=== PATIENT | male | born 1965 | race Caucasian/White ===

== ENCOUNTER → 2016-05-20 | Outpatient (CLI) | payer BC ==
--- NOTE | 2016-05-21 07:48 | XR ---
EXAMINATION TYPE: XR chest 2V DATE OF EXAM: 05/20/2016 7:17 PM COMPARISON: NONE HISTORY: Shortness of breath TECHNIQUE: Frontal and lateral views of the chest are obtained. FINDINGS: There is no focal air space opacity, pleural effusion, or pneumothorax seen. The cardiac silhouette size is within normal limits. The osseous structures are intact. IMPRESSION: No acute cardiopulmonary process.
== END | disposition home or self-care (01) ==
LOC: RADXRMAIN 18:55
PROVIDERS: ATTEND Family Medicine
DX: J20.9 Acute bronchitis, unspecified (principal)
CPT/HCPCS: 71020

== ENCOUNTER 2016-05-21 17:09 | Inpatient (IN) | payer BC ==
[2016-05-21] MEDS ORDERED: ALBUTEROL NEBULIZED 2.5 MG/3 ML INHALATION STA (17:48)
[2016-05-21] MEDS ORDERED: methylPREDNISolone SOD SUCCI 125 MG/2 ML VIAL IV STA (17:48)
[2016-05-21] MEDS ORDERED: SODIUM CHLORIDE 0.9% 1,000 ML IV STA (17:48)
[2016-05-21] MEDS ORDERED: KETOROLAC 30 MG/ML 1 ML VIAL IVP STA (18:14)
--- NOTE | 2016-05-21 18:14 | ED ---
General Adult HPI <Jesus Manuel Cullen - Last Filed: 05/21/16 19:49> - General Source: patient, RN notes reviewed Mode of arrival: ambulatory Limitations: no limitations <Anuradha Cheng - Last Filed: 05/21/16 19:58> - General Chief complaint: Upper Respiratory Infection Stated complaint: POSS PNEUMONIA, SENT BY DR MASSEY Time Seen by Provider: 05/21/16 17:44 - History of Present Illness Initial comments: 50-year-old male presents to the emergency department with a chief complaint of cough and shortness of breath. Patient has been sick for the last few weeks. He has been on antibiotics as well as been on steroids with no improvement. Patient states that he continues to be short of breath. Patient states that he also has developed fever starting today. He went to his doctor there x-ray and today continued to have coughing fits shortness of breath without that he should be re-seen. They stated there was no other symptoms. They deny any history of smoking. They state that he does work outside. He states they've been doing a breathing treatment as well as no improvement. Basically were concerned due to the continued symptoms without that they should be evaluated. Patient states he also has a chest pain on the center of his chest worse when he coughs worse to touch as well. Patient denies any recent back pain, abdominal pain, nausea vomiting, numbness or tingling, dysuria or hematuria, constipation or diarrhea, headaches or visual changes, or any other current symptoms. (Anuradha Cheng) - Related Data Home Medications Medication Instructions Recorded Confirmed Albuterol Nebulized [Ventolin 2.5 mg INHALATION RT-BID 05/21/16 05/21/16 Nebulized] Desvenlafaxine Succinate [Pristiq] 100 mg PO QAM 05/21/16 05/21/16 Fenofibrate [Lofibra] 160 mg PO DAILY 05/21/16 05/21/16 Fexofenadine HCl [Lara Allergy] 180 mg PO DAILY 05/21/16 05/21/16 Multivitamins, Thera [Multivitamin] 1 tab PO DAILY 05/21/16 05/21/16 Zolpidem [Ambien] 10 mg PO HS PRN 05/21/16 05/21/16 buPROPion XL [Wellbutrin Xl] 150 mg PO DAILY 05/21/16 05/21/16 Allergies Allergy/AdvReac Type Severity Reaction Status Date / Time No Known Allergies Allergy Verified 05/21/16 17:54 Review of Systems ROS Other: All systems not noted in ROS Statement are negative. <Jesus Manuel Cullen - Last Filed: 05/21/16 19:49> ROS Other: All systems not noted in ROS Statement are negative. <JovicarylAnuradha - Last Filed: 05/21/16 19:58> ROS Statement: Those systems with pertinent positive or pertinent negative responses have been documented in the HPI. Past Medical History Past Medical History: No Reported History History of Any Multi-Drug Resistant Organisms: None Reported Past Surgical History: Hernia Repair, Orthopedic Surgery Additional Past Surgical History / Comment(s): shoulder hip arm Past Psychological History: No Psychological Hx Reported Smoking Status: Current every day smoker Past Alcohol Use History: None Reported, Occasional Past Drug Use History: None Reported <SkylarAnuradha - Last Filed: 05/21/16 19:58> General Exam <Jesus Manuel Cullen - Last Filed: 05/21/16 19:49> Limitations: no limitations <Anuradha Cheng - Last Filed: 05/21/16 19:58> - General Exam Comments Initial Comments: General: The patient is awake and alert, in no distress, and does not appear acutely ill. Eye: Pupils are equal, round and reactive to light, extra-ocular movements are intact; there is normal conjunctiva bilaterally. No signs of icterus. Ears, nose, mouth and throat: There are moist mucous membranes. Neck: The neck is supple, there is no tenderness. Cardiovascular: There is a regular rate and rhythm. No murmur, rub or gallop is appreciated. Tenderness to palpation along the anterior chest wall. Respiratory: Lungs are clear to auscultation, respirations are non-labored, breath sounds are equal. No wheezes, stridor, rales, or rhonchi. Gastrointestinal: Soft, non-distended, non-tender abdomen without masses or organomegaly noted. There is no rebound or guarding present. No CVA tenderness. Bowel sounds are unremarkable. Back: There is no tenderness to palpation in the midline. There is no obvious deformity. No rashes noted. Musculoskeletal: Normal ROM, no tenderness, There is no pedal edema. There is no calf tenderness or swelling. Sensation intact. Pulses equal bilaterally 2+. Neurological: CN II-XII intact, There are no obvious motor or sensory deficits. Coordination appears grossly intact. Speech is normal. Skin: Skin is warm and dry and no rashes or lesions are noted. Psychiatric: Cooperative, appropriate mood & affect, normal judgment. (Anuradha Cheng) Course <Jesus Manuel Cullen - Last Filed: 05/21/16 19:49> <Anuradha Cheng - Last Filed: 05/21/16 19:58> Vital Signs 05/21/16 05/21/16 05/21/16 17:17 17:20 18:02 Temperature 99.4 F Pulse Rate 111 H 78 Respiratory 18 18 Rate Blood Pressure 134/85 O2 Sat by Pulse 97 Oximetry 05/21/16 18:11 Temperature Pulse Rate 84 Respiratory Rate Blood Pressure O2 Sat by Pulse Oximetry - Reevaluation(s) Reevaluation #1: 05/21/16 19:49 I did personally do a [id number] examination the patient did discuss findings with him. Patient is dyspneic he demonstrates diffuse wheezing in spite of aggressive treatment. I did discuss case with Dr. Massey patient will be admitted. (Jesus Manuel Cullen) EKG Findings - EKG Comments: EKG Findings:: Sinus tachycardia 104 bpm, normal axis, no atopy, no S-T depressions or elevations, <Anuradha Cheng - Last Filed: 05/21/16 19:58> Medical Decision Making - Lab Data Result diagrams: 05/21/16 18:20 05/21/16 18:20 <Jesus Manuel Cullen - Last Filed: 05/21/16 19:49> - Lab Data Result diagrams: 05/21/16 18:20 05/21/16 18:20 <Anuradha Cheng - Last Filed: 05/21/16 19:58> - Medical Decision Making 50-year-old male presents emergency Department chief complaint of cough and shortness of breath. Even after treatment. Patient continues to have wheezing and shortness of breath, cough. Patient spelled outpatient treatment. Patient continues to have wheezing. at [facility] we will admit for continued medication. Patient has failed outpatient treatment of antibiotics and steriods. Patient in agreement with plan. (Anuradha Cheng) - Lab Data Lab Results 05/21/16 05/21/16 05/21/16 Range/Units 18:20 18:20 18:20 WBC 7.1 (3.8-10.6) k/uL RBC 5.06 (4.30-5.90) m/uL Hgb 15.3 (13.0-17.5) gm/dL Hct 44.1 (39.0-53.0) % MCV 87.3 (80.0-100.0) fL MCH 30.2 (25.0-35.0) pg MCHC 34.6 (31.0-37.0) g/dL RDW 13.2 (11.5-15.5) % Plt Count 242 (150-450) k/uL Neutrophils % 56 % Lymphocytes % 30 % Monocytes % 6 % Eosinophils % 4 % Basophils % 1 % Neutrophils # 4.0 (1.3-7.7) k/uL Lymphocytes # 2.1 (1.0-4.8) k/uL Monocytes # 0.5 (0-1.0) k/uL Eosinophils # 0.3 (0-0.7) k/uL Basophils # 0.1 (0-0.2) k/uL PT (9.0-12.0) sec INR (<1.1) APTT (22.0-30.0) sec D-Dimer (<0.60) mg/L FEU Sodium 142 (137-145) mmol/L Potassium 4.4 (3.5-5.1) mmol/L Chloride 105 (98-107) mmol/L Carbon Dioxide 25 (22-30) mmol/L Anion Gap 12 mmol/L BUN 24 H (9-20) mg/dL Creatinine 1.20 (0.66-1.25) mg/dL Est GFR (MDRD) Af Amer >60 (>60 ml/min/1.73 sqM) Est GFR (MDRD) Non-Af >60 (>60 ml/min/1.73 sqM) Glucose 95 (74-99) mg/dL Calcium 9.6 (8.4-10.2) mg/dL Total Bilirubin 0.7 (0.2-1.3) mg/dL AST 31 (17-59) U/L ALT 49 (21-72) U/L Alkaline Phosphatase 58 (38-126) U/L Total Creatine Kinase 161 (55-170) U/L CK-MB (CK-2) 1.4 (0.0-2.4) ng/mL CK-MB (CK-2) Rel Index 0.9 Troponin I <0.012 (0.000-0.034) ng/mL Total Protein 7.0 (6.3-8.2) g/dL Albumin 4.3 (3.5-5.0) g/dL Influenza Type A RNA (Not Detectd) Influenza Type B (PCR) (Not Detectd) 05/21/16 05/21/16 Range/Units 18:20 18:20 WBC (3.8-10.6) k/uL RBC (4.30-5.90) m/uL Hgb (13.0-17.5) gm/dL Hct (39.0-53.0) % MCV (80.0-100.0) fL MCH (25.0-35.0) pg MCHC (31.0-37.0) g/dL RDW (11.5-15.5) % Plt Count (150-450) k/uL Neutrophils % % Lymphocytes % % Monocytes % % Eosinophils % % Basophils % % Neutrophils # (1.3-7.7) k/uL Lymphocytes # (1.0-4.8) k/uL Monocytes # (0-1.0) k/uL Eosinophils # (0-0.7) k/uL Basophils # (0-0.2) k/uL PT 10.4 (9.0-12.0) sec INR 1.0 (<1.1) APTT 22.0 (22.0-30.0) sec D-Dimer 0.31 (<0.60) mg/L FEU Sodium (137-145) mmol/L Potassium (3.5-5.1) mmol/L Chloride (98-107) mmol/L Carbon Dioxide (22-30) mmol/L Anion Gap mmol/L BUN (9-20) mg/dL Creatinine (0.66-1.25) mg/dL Est GFR (MDRD) Af Amer (>60 ml/min/1.73 sqM) Est GFR (MDRD) Non-Af (>60 ml/min/1.73 sqM) Glucose (74-99) mg/dL Calcium (8.4-10.2) mg/dL Total Bilirubin (0.2-1.3) mg/dL AST (17-59) U/L ALT (21-72) U/L Alkaline Phosphatase (38-126) U/L Total Creatine Kinase (55-170) U/L CK-MB (CK-2) (0.0-2.4) ng/mL CK-MB (CK-2) Rel Index Troponin I (0.000-0.034) ng/mL Total Protein (6.3-8.2) g/dL Albumin (3.5-5.0) g/dL Influenza Type A RNA Not Detected (Not Detectd) Influenza Type B (PCR) Not Detected (Not Detectd) Disposition <Jesus Manuel Cullen - Last Filed: 05/21/16 19:49> Time of Disposition: 19:48 Decision Date: 05/21/16 Decision Time: 19:48 <Anuradha Cheng - Last Filed: 05/21/16 19:58> Clinical Impression: Acute bronchitis, Failure of outpatient treatment Disposition: ADMITTED IP TO THIS HOSP Condition: Stable Referrals: Miles Massey MD [Primary Care Provider] - 1-2 days
[2016-05-21] MEDS ORDERED: PROMETHAZ-COD 6.25-10 MG/5 ML 5 ML CUP PO STA (18:23)
[2016-05-21 18:37] LABS: Basophils # (A) 0.1 k/uL (0-0.2); Basophils % (A) 1 %; CH 31.5; CHCM 36.3; Eosinophils # (A) 0.3 k/uL (0-0.7); Eosinophils % (A) 4 %; HCT 44.1 % (39.0-53.0); HDW 3.12; HGB 15.3 gm/dL (13.0-17.5); Luc # (Auto) 0.21; Luc % (Auto) 3; Lymphocytes # (A) 2.1 k/uL (1.0-4.8); Lymphocytes % (A) 30 %; MCH 30.2 pg (25.0-35.0); MCHC 34.6 g/dL (31.0-37.0); MCV 87.3 fL (80.0-100.0); Mean Platelet Volume 6.5; Monocytes # (A) 0.5 k/uL (0-1.0); Monocytes % (A) 6 %; Neutrophils % (A) 56 %; RBC 5.06 m/uL (4.30-5.90); RDW 13.2 % (11.5-15.5); WBC 7.1 k/uL (3.8-10.6); WBC (Perox) 7.22
[2016-05-21 18:50] LABS: ALT 49 U/L (21-72); AST 31 U/L (17-59); Alkaline Phosphatase 58 U/L (38-126); Anion Gap 12 mmol/L; Blood Urea Nitrogen 24 mg/dL (9-20); Calcium 9.6 mg/dL (8.4-10.2); Carbon Dioxide 25 mmol/L (22-30); Chloride 105 mmol/L (98-107); Glucose 95 mg/dL (74-99); Non-African American GFR(MDRD) >60 (>60 ml/min/1.73 sqM); Potassium 4.4 mmol/L (3.5-5.1); Sodium 142 mmol/L (137-145); Total Bilirubin 0.7 mg/dL (0.2-1.3)
--- NOTE | 2016-05-21 18:59 | XR ---
EXAMINATION TYPE: XR chest 2V DATE OF EXAM: 05/21/2016 6:47 PM COMPARISON: 05/20/2016 HISTORY: Cough and short of breath TECHNIQUE: Frontal and lateral views of the chest are obtained. FINDINGS: Heart and mediastinum are normal. Lungs are clear. Costophrenic angles are clear. There ar e no hilar masses. There are chest leads. There is a hiatal hernia. Bony thorax is intact. IMPRESSION: Hiatal hernia. No active cardiopulmonary disease. No change.
[2016-05-21 19:03] LABS: Prothrombin Time 10.4 sec (9.0-12.0)
[2016-05-21 19:04] LABS: Creatine Kinase 161 U/L (55-170)
[2016-05-21 19:17] LABS: Creatine Kinase MB 1.4 ng/mL (0.0-2.4); Troponin I <0.012 ng/mL (0.000-0.034)
[2016-05-21] MEDS: SODIUM CHLORIDE 0.9% 1,000 ML IV SCH (20:31)
[2016-05-21] MEDS ORDERED: MAGNESIUM SULFATE-D5W PMX 1 GM in DEXTROSE/WATER 1 100ML.BAG IVPB ONE (21:00)
[2016-05-21 21:26] LABS: Glucose,Whole Blood 107 mg/dL (75-99)
[2016-05-21] MEDS: ZOLPIDEM 10 MG TAB PO PRN (22:00)
[2016-05-22] MEDS: methylPREDNISolone SOD SUCCI 125 MG/2 ML VIAL IV SCH ×5 (00:15→23:28)
[2016-05-22 07:11] LABS: Glucose,Whole Blood 140 mg/dL (75-99)
[2016-05-22] MEDS: SODIUM CHLORIDE 0.9% 1,000 ML IV SCH ×2 (07:45→12:10)
[2016-05-22] MEDS: ACETAMINOPHEN TAB 325 MG TAB PO PRN (07:45)
[2016-05-22] MEDS: buPROPion XL 150 MG TAB.ER.24H PO SCH (07:49)
[2016-05-22] MEDS: LORATADINE 10 MG TAB PO SCH (07:49)
[2016-05-22] MEDS: FENOFIBRATE 160 MG TAB PO SCH (07:49)
[2016-05-22] MEDS: DESVENLAFAXINE SUCCINATE 50 MG TAB.ER.24H PO SCH (07:49)
--- NOTE | 2016-05-22 12:04 | P.HPIM ---
History of Present Illness H&P Date: 05/22/16 Chief Complaint: Shortness breath and cough Subhash is a 50-year-old white male well-known to me. He has a remote history of previous asthma workup and pneumonia in the early 90s. He is on no current medications for this. He presented the emergency room today after being seen in my office on 2016 for shortness of breath, wheeze and cough. He was given oral antibiotics and steroids. His symptoms improved for 3-4 days and then began worsening again. He called the office and was given another oral antibiotic and steroid pack, but it did nothing to improve her symptoms. He received a chest x-ray in the office, was not able to be seen by practitioner. His contacted me via the on-call pager we discussed his symptoms. I directed him to the emergency room. He was found to be in mild respiratory distress with intractable coughing and wheeze. He received IV steroids and updraft, with symptoms not improved. He is now admitted for further workup and treatment. Review of Systems All systems: negative Constitutional: Reports as per HPI, Reports fever (Last night of 100), Denies chills Eyes: denies blurred vision, denies pain Ears, nose, mouth and throat: Denies headache, Denies sore throat Cardiovascular: Denies chest pain, Denies shortness of breath Respiratory: Reports as per HPI, Reports cough, Reports cough with sputum, Reports wheezing Gastrointestinal: Denies abdominal pain, Denies diarrhea, Denies nausea, Denies vomiting Musculoskeletal: Denies myalgias Integumentary: Denies pruritus, Denies rash Neurological: Denies numbness, Denies weakness Psychiatric: Denies anxiety, Denies depression Endocrine: Denies fatigue, Denies weight change Past Medical History Past Medical History: No Reported History, Respiratory Disorder (Seasonal allergies and questionable remote asthma) History of Any Multi-Drug Resistant Organisms: None Reported Past Surgical History: Hernia Repair, Orthopedic Surgery Additional Past Surgical History / Comment(s): R-shoulder/hip arm Past Anesthesia/Blood Transfusion Reactions: No Reported Reaction Past Psychological History: No Psychological Hx Reported, Depression Smoking Status: Never smoker Past Alcohol Use History: None Reported, Occasional Past Drug Use History: None Reported - Past Family History Father History Unknown: Yes Family Medical History: No Reported History Mother Family Medical History: COPD, Diabetes Mellitus Medications and Allergies Home Medications Medication Instructions Recorded Confirmed Type Albuterol Nebulized [Ventolin 2.5 mg INHALATION RT-BID 05/21/16 05/21/16 History Nebulized] Desvenlafaxine Succinate [Pristiq] 100 mg PO QAM 05/21/16 05/21/16 History Fenofibrate [Lofibra] 160 mg PO DAILY 05/21/16 05/21/16 History Fexofenadine HCl [Lara Allergy] 180 mg PO DAILY 05/21/16 05/21/16 History Multivitamins, Thera [Multivitamin] 1 tab PO DAILY 05/21/16 05/21/16 History Zolpidem [Ambien] 10 mg PO HS PRN 05/21/16 05/21/16 History buPROPion XL [Wellbutrin Xl] 150 mg PO DAILY 05/21/16 05/21/16 History Allergies Allergy/AdvReac Type Severity Reaction Status Date / Time No Known Allergies Allergy Verified 05/21/16 17:54 Physical Exam Vitals: Vital Signs Temp Pulse Pulse Resp BP BP Pulse Ox 05/22/16 11:29 85 18 05/22/16 08:00 85 18 05/22/16 07:00 98.7 F 85 18 121/77 91 L 05/21/16 20:20 98.1 F 84 20 113/69 91 L 05/21/16 20:00 99.3 F 88 18 106/69 91 L Intake and Output 05/21/16 05/22/16 05/22/16 22:59 06:59 14:59 Other: # Voids 1 2 GENERAL: Well-appearing, well-nourished and in no acute distress. HEAD: Atraumatic, normocephalic. EYES: Pupils equal round and reactive to light, extraocular movements intact, sclera anicteric, conjunctiva are normal. ENT:nares patent, oropharynx clear without exudates. Moist mucous membranes. NECK: Normal range of motion, supple without lymphadenopathy or JVD, no thyromegaly LUNGS: Breath sounds coarse with decreased air exchange, bilateral inspiratory and expiratory wheezes noted HEART: Regular rate and rhythm without murmurs, rubs or gallops.S1S2 Normal ABDOMEN: Soft, nontender, normoactive bowel sounds. No guarding, no rebound. No masses appreciated. EXTREMITIES: Normal range of motion, no pitting or edema. No clubbing or cyanosis. NEUROLOGICAL: Cranial nerves II through XII grossly intact. Normal speech, normal gait. PSYCH: Normal mood, normal affect. SKIN: Warm, Dry, normal turgor, no rashes or lesions noted. Results CBC & Chem 7: 05/21/16 18:20 05/21/16 18:20 Labs: Abnormal Lab Results - Last 24 Hours (Table) 05/21/16 05/22/16 Range/Units 21:01 07:09 POC Glucose (mg/dL) 107 H 140 H (75-99) mg/dL Chest x-ray: report reviewed Thrombosis Risk Factor Assmnt - DVT/VTE Prophylaxis DVT/VTE Prophylaxis: Low risk, early ambulation encouraged - Choose All That Apply Each Factor Represents 1 point: Age 41-60 years Other Risk Factors: No Other congenital or acquired thrombophilia - If yes, enter type in comment: No Thrombosis Risk Factor Assessment Total Risk Factor Score: 1 Thrombosis Risk Factor Assessment Level: Low Risk Assessment and Plan Plan: Acute wheezing episode, most likely exacerbation of asthma: He'll continue on DuoNeb updrafts, IV sedative steroids, we'll ask for pulmonology consultation, start him on Symbicort 160, 2 puffs twice a day, when necessary oxygen if needed , Depression: He'll continue on Wellbutrin and Pristiq. Dehydration: BUN and creatinine ratio is greater than 20-1, he currently is at KVO and is tolerating oral fluids. You are E received IV fluids overnight at 100 mL an hour home recheck labs in a.m. Seasonal allergy disorder: He'll continue on Claritin Hyperlipidemia: He'll continue on his fenofibrate DVT prophylaxis: Early ambulation is recommended at this time. GI prophylaxis: He'll be started on Pepcid at this time I'll await pulmonology evaluation. He most likely needs an outpatient pulmonary function chest test possibly with catecholamine challenge. Will hold off on antibiotics until pulmonology sees him. He will Be reevaluated in the next 24 hours.
[2016-05-22 12:24] LABS: Glucose,Whole Blood 117 mg/dL (75-99)
[2016-05-22] MEDS: INSULIN LISPRO (humaLOG) 300 UNIT/3 ML VIAL SQ SCH ×3 (12:33→21:15)
[2016-05-22] MEDS: FAMOTIDINE 20 MG TAB PO SCH (12:38)
[2016-05-22] MEDS: MULTIVITAMINS, THERA 1 EACH TAB PO SCH (12:38)
[2016-05-22] MEDS: IPRATROPIUM-ALBUTEROL 3 ML NEB INHALATION PRN ×3 (12:40→19:45)
[2016-05-22 17:01] LABS: Glucose,Whole Blood 192 mg/dL (75-99)
[2016-05-22] MEDS: SYMBICORT 160-4.5 MCG INHALER INHALATION SCH (19:45)
[2016-05-22 21:06] LABS: Glucose,Whole Blood 129 mg/dL (75-99)
[2016-05-22] MEDS: ZOLPIDEM 10 MG TAB PO PRN (22:13)
[2016-05-22] MEDS: PANTOPRAZOLE 40 MG TABLET PO SCH (22:13)
[2016-05-23] MEDS: SODIUM CHLORIDE 0.9% 1,000 ML IV SCH ×3 (01:47→20:44)
[2016-05-23] MEDS: methylPREDNISolone SOD SUCCI 125 MG/2 ML VIAL IV SCH ×4 (05:35→22:59)
[2016-05-23] MEDS: PANTOPRAZOLE 40 MG TABLET PO SCH (06:33)
[2016-05-23 07:31] LABS: Glucose,Whole Blood 136 mg/dL (75-99)
[2016-05-23] MEDS: FENOFIBRATE 160 MG TAB PO SCH (07:34)
[2016-05-23] MEDS: FAMOTIDINE 20 MG TAB PO SCH (07:34)
[2016-05-23] MEDS: LORATADINE 10 MG TAB PO SCH (07:34)
--- NOTE | 2016-05-23 07:34 | XR ---
EXAMINATION TYPE: XR chest 2V DATE OF EXAM: 05/23/2016 7:27 AM COMPARISON: NONE HISTORY: Shortness of breath TECHNIQUE: Frontal and lateral views of the chest are obtained. FINDINGS: Increased strandy density left lower lobe may reflect atelectasis however developing pneumo lion is not excluded. Suspect small hiatal hernia. The cardiac silhouette size is within normal limits . The osseous structures are intact. IMPRESSION: Increased strandy density left lower lobe may reflect atelectasis however developing pn eumonia is not excluded.
[2016-05-23] MEDS: buPROPion XL 150 MG TAB.ER.24H PO SCH (07:35)
[2016-05-23] MEDS: INSULIN LISPRO (humaLOG) 300 UNIT/3 ML VIAL SQ SCH ×4 (07:35→20:42)
[2016-05-23] MEDS: DESVENLAFAXINE SUCCINATE 50 MG TAB.ER.24H PO SCH (07:35)
[2016-05-23 07:56] LABS: ALT 46 U/L (21-72); AST 21 U/L (17-59); Alkaline Phosphatase 59 U/L (38-126); Anion Gap 13 mmol/L; Blood Urea Nitrogen 22 mg/dL (9-20); Calcium 9.3 mg/dL (8.4-10.2); Carbon Dioxide 24 mmol/L (22-30); Chloride 104 mmol/L (98-107); Glucose 133 mg/dL (74-99); Non-African American GFR(MDRD) >60 (>60 ml/min/1.73 sqM); Potassium 4.6 mmol/L (3.5-5.1); Sodium 141 mmol/L (137-145); Total Bilirubin 0.7 mg/dL (0.2-1.3); Total Protein 6.6 g/dL (6.3-8.2)
[2016-05-23 08:27] LABS: Basophils % (A) 0 %; CH 31.3; CHCM 35.1; Eosinophils % (A) 0 %; HCT 40.6 % (39.0-53.0); HDW 2.99; HGB 13.7 gm/dL (13.0-17.5); Luc # (Auto) 0.06; Luc % (Auto) 1; Lymphocytes # (A) 0.9 k/uL (1.0-4.8); Lymphocytes % (A) 6 %; MCH 30.3 pg (25.0-35.0); MCHC 33.8 g/dL (31.0-37.0); MCV 89.6 fL (80.0-100.0); Mean Platelet Volume 6.9; Monocytes # (A) 0.3 k/uL (0-1.0); Monocytes % (A) 2 %; Neutrophils # (A) 12.9 k/uL (1.3-7.7); Neutrophils % (A) 91 %; RBC 4.53 m/uL (4.30-5.90); RDW 13.3 % (11.5-15.5); WBC 14.2 k/uL (3.8-10.6); WBC (Perox) 14.54
[2016-05-23] MEDS: SYMBICORT 160-4.5 MCG INHALER INHALATION SCH ×2 (09:25→19:49)
[2016-05-23] MEDS: MULTIVITAMINS, THERA 1 EACH TAB PO SCH (11:03)
[2016-05-23] MEDS: ACETAMINOPHEN TAB 325 MG TAB PO PRN ×2 (11:03→16:47)
[2016-05-23 11:26] LABS: Glucose,Whole Blood 138 mg/dL (75-99)
[2016-05-23] MEDS ORDERED: PNEUMONIA PROTOCOL UTILIZED 1 EACH MISC PO PRN (12:12)
[2016-05-23] MEDS ORDERED: LEVOFLOXACIN 750MG-D5W PMX 750 MG in DEXTROSE/WATER 1 150ML.BAG IVPB STA (12:12)
[2016-05-23] MEDS: IPRATROPIUM-ALBUTEROL 3 ML NEB INHALATION PRN ×2 (13:34→19:50)
[2016-05-23] MEDS ORDERED: INFLUENZA VACCINE (3YR+) 60 MCG/0.5 ML SYRINGE IM ONE (15:56)
[2016-05-23 16:30] LABS: Glucose,Whole Blood 149 mg/dL (75-99)
--- NOTE | 2016-05-23 16:50 | P.CNPUL ---
History of Present Illness Consult date: 05/23/16 Requesting physician: Miles Levine Reason for consult: asthma Chief complaint: Shortness of breath cough and cough induced syncope History of present illness: This is a 50-year-old white male with history of mild intermittent asthma, patient has seen me in the past, however he never came back for follow-up. I have diagnosed him in the past as having bronchial asthma, and I recommended albuterol inhaler to take as needed. His asthma has been so mild to the point that he did not have to take his inhaler much over the last few years. Patient presented initially to his primary care physician in mid April for shortness of breath cough and wheezing, and he was treated with antibiotics and a short course of steroids. He responded quite well initially, however few days after he was done with the treatment, his symptoms came back. And his symptoms are mostly symptoms of cough wheezing shortness of breath. And sometimes the cough is so vigorous to the point that he is almost passing out. According to his he passed out once while he was coughing. But it was only for a few seconds. Considering the intractable cough and wheezing patient was seen in the ER, chest x-ray is suggestive of a limited infiltrate in the left lower lobe , patient was admitted and this consult was initiated. Review of Systems All systems: negative Constitutional: Reports as per HPI, Reports fever (Last night of 100), Denies chills Eyes: denies blurred vision, denies pain Ears, nose, mouth and throat: Denies headache, Denies sore throat Cardiovascular: Denies chest pain, Denies shortness of breath Respiratory: Reports as per HPI, Reports cough, Reports cough with sputum, Reports wheezing Gastrointestinal: Denies abdominal pain, Denies diarrhea, Denies nausea, Denies vomiting Musculoskeletal: Denies myalgias Integumentary: Denies pruritus, Denies rash Neurological: Denies numbness, Denies weakness Psychiatric: Denies anxiety, Denies depression Endocrine: Denies fatigue, Denies weight change Past Medical History Past Medical History: No Reported History, Asthma, Respiratory Disorder ( Seasonal allergies and questionable remote asthma) History of Any Multi-Drug Resistant Organisms: None Reported Past Surgical History: Hernia Repair, Orthopedic Surgery Additional Past Surgical History / Comment(s): R-shoulder/hip arm Past Anesthesia/Blood Transfusion Reactions: No Reported Reaction Past Psychological History: No Psychological Hx Reported, Depression Smoking Status: Never smoker Past Alcohol Use History: None Reported, Occasional Past Drug Use History: None Reported - Past Family History Father History Unknown: Yes Family Medical History: No Reported History Mother Family Medical History: COPD, Diabetes Mellitus Medications and Allergies Home Medications Medication Instructions Recorded Confirmed Type Albuterol Nebulized [Ventolin 2.5 mg INHALATION RT-BID 05/21/16 05/21/16 History Nebulized] Desvenlafaxine Succinate [Pristiq] 100 mg PO QAM 05/21/16 05/21/16 History Fenofibrate [Lofibra] 160 mg PO DAILY 05/21/16 05/21/16 History Fexofenadine HCl [Lara Allergy] 180 mg PO DAILY 05/21/16 05/21/16 History Multivitamins, Thera [Multivitamin] 1 tab PO DAILY 05/21/16 05/21/16 History Zolpidem [Ambien] 10 mg PO HS PRN 05/21/16 05/21/16 History buPROPion XL [Wellbutrin Xl] 150 mg PO DAILY 05/21/16 05/21/16 History Allergies Allergy/AdvReac Type Severity Reaction Status Date / Time No Known Allergies Allergy Verified 05/21/16 17:54 Physical Exam Vitals: Vital Signs Temp Pulse Pulse Resp BP Pulse Ox 05/23/16 15:00 98.9 F 96 18 127/82 91 L 05/23/16 13:47 100 05/23/16 13:36 100 20 05/23/16 07:00 97.0 F L 76 19 153/85 90 L 05/22/16 23:00 98.6 F 91 18 122/66 92 L 05/22/16 20:09 102 H 05/22/16 19:45 104 H Intake and Output 05/23/16 05/23/16 05/23/16 06:59 14:59 22:59 Intake Total 520 Balance 520 Intake: Oral 520 Other: Voiding Method Toilet Toilet # Voids 1 3 Physical Exam: Revealed a 50-year-old in no distress HEENT:[Neck is supple.] [No neck masses.] [No thyromegaly.] [No JVD.] Chest: [Effuse rhonchi and wheezes bilaterally.] Cardiac Exam: [Normal S1 and S2, no S3 gallop, no murmur.] Abdomen: [Soft, nontender, no megaly, no rebound, no guarding, normal bowel sounds.] Extremities: [No clubbing, no edema, no cyanosis.] Neurological Exam: [No focal neurologic deficit.] Results - Laboratory Findings CBC and BMP: 05/23/16 07:00 05/23/16 07:00 PT/INR, D-dimer PT 10.4 sec (9.0-12.0) 05/21/16 18:20 INR 1.0 (<1.1) 05/21/16 18:20 D-Dimer 0.31 mg/L FEU (<0.60) 05/21/16 18:20 Abnormal lab findings: Abnormal Labs 05/21/16 05/22/16 05/22/16 21:01 07:09 12:23 WBC Neutrophils # Lymphocytes # BUN Glucose POC Glucose (mg/dL) 107 H 140 H 117 H 05/22/16 05/22/16 05/23/16 17:00 21:00 07:00 WBC 14.2 H Neutrophils # 12.9 H Lymphocytes # 0.9 L BUN Glucose POC Glucose (mg/dL) 192 H 129 H 05/23/16 05/23/16 05/23/16 07:00 07:29 11:25 WBC Neutrophils # Lymphocytes # BUN 22 H Glucose 133 H POC Glucose (mg/dL) 136 H 138 H 05/23/16 16:29 WBC Neutrophils # Lymphocytes # BUN Glucose POC Glucose (mg/dL) 149 H - Diagnostic Findings Chest x-ray: image reviewed (Suspect suspect left lower lobe atelectasis or possibly early limited infiltrate.) Assessment and Plan Plan: Impression: 1 acute exacerbation of bronchial asthma, triggered by an acute episode of tracheobronchitis, possibility of a limited left lower lobe community-acquired pneumonia is not entirely ruled out. 2 cough induced syncope 3 history of hypertriglyceridemia, depression, and multiple environmental ALLERGIES. Recommendation: Agree with the present treatment plan including antibiotics and/ Levaquin, bronchodilators utilizing albuterol with Atrovent, Symbicort, and I added Singulair. Patient will likely improve over the next 24-48 hours, and if discharged home, the prednisone will need to be tapered over a period of 21 days. We'll continue to follow. Time with Patient: Greater than 30
[2016-05-23 20:38] LABS: Glucose,Whole Blood 138 mg/dL (75-99)
[2016-05-23] MEDS: ZOLPIDEM 10 MG TAB PO PRN (20:41)
[2016-05-23] MEDS: MONTELUKAST 10 MG TAB PO SCH (20:41)
[2016-05-24] MEDS: methylPREDNISolone SOD SUCCI 125 MG/2 ML VIAL IV SCH ×4 (05:55→23:30)
[2016-05-24 07:48] LABS: Glucose,Whole Blood 126 mg/dL (75-99)
[2016-05-24] MEDS: IPRATROPIUM-ALBUTEROL 3 ML NEB INHALATION PRN ×4 (07:53→19:55)
[2016-05-24] MEDS: SYMBICORT 160-4.5 MCG INHALER INHALATION SCH ×2 (07:53→19:55)
[2016-05-24] MEDS: INSULIN LISPRO (humaLOG) 300 UNIT/3 ML VIAL SQ SCH ×4 (07:56→22:02)
[2016-05-24] MEDS: DESVENLAFAXINE SUCCINATE 50 MG TAB.ER.24H PO SCH (07:58)
[2016-05-24] MEDS: FENOFIBRATE 160 MG TAB PO SCH (07:58)
[2016-05-24] MEDS: LORATADINE 10 MG TAB PO SCH (07:58)
[2016-05-24] MEDS: PANTOPRAZOLE 40 MG TABLET PO SCH (07:58)
[2016-05-24] MEDS: buPROPion XL 150 MG TAB.ER.24H PO SCH (07:58)
[2016-05-24] MEDS: SODIUM CHLORIDE 0.9% 1,000 ML IV SCH ×2 (07:59→15:34)
[2016-05-24 10:38] LABS: Basophils % (A) 0 %; CH 31.2; CHCM 35.1; Eosinophils % (A) 0 %; HCT 40.8 % (39.0-53.0); HDW 2.99; Luc # (Auto) 0.04; Luc % (Auto) 0; Lymphocytes # (A) 0.6 k/uL (1.0-4.8); Lymphocytes % (A) 5 %; MCH 30.6 pg (25.0-35.0); MCHC 34.3 g/dL (31.0-37.0); MCV 89.3 fL (80.0-100.0); Mean Platelet Volume 7.1; Monocytes # (A) 0.4 k/uL (0-1.0); Monocytes % (A) 3 %; Neutrophils % (A) 92 %; RBC 4.57 m/uL (4.30-5.90); RDW 12.9 % (11.5-15.5); WBC (Perox) 13.04
[2016-05-24] MEDS: MULTIVITAMINS, THERA 1 EACH TAB PO SCH (11:08)
[2016-05-24 11:23] LABS: Anion Gap 13 mmol/L; Blood Urea Nitrogen 24 mg/dL (9-20); Calcium 9.3 mg/dL (8.4-10.2); Carbon Dioxide 26 mmol/L (22-30); Chloride 103 mmol/L (98-107); Glucose 179 mg/dL (74-99); Non-African American GFR(MDRD) >60 (>60 ml/min/1.73 sqM); Potassium 4.1 mmol/L (3.5-5.1); Sodium 142 mmol/L (137-145)
[2016-05-24 11:57] LABS: Glucose,Whole Blood 137 mg/dL (75-99)
[2016-05-24] MEDS: LEVOFLOXACIN 750MG-D5W PMX 750 MG in DEXTROSE/WATER 1 150ML.BAG IVPB SCH (13:15)
[2016-05-24] MEDS: ACETAMINOPHEN TAB 325 MG TAB PO PRN (14:21)
--- NOTE | 2016-05-24 15:21 | P.PN ---
Subjective Patient is a 50-year-old white male with medical history significant for asthma and pneumonia. Patient admitted with symptoms of mild respiratory distress with intractable coughing and wheezing, failed outpatient treatment. Chest x- ray from this morning with evidence of increased strandy density left lower lobe may reflect atelectasis or developing pneumonia. Patient is examined on the medical floor where he is currently lying in bed. Patient complains of shortness of breath and coughing with minimal activity. Patient complains of mild chest discomfort especially when coughing. Denies chills, nausea, vomiting , abdominal pain, constipation, diarrhea, urinary frequency, dysuria, or hematuria. Patient is afebrile. Oxygen saturation 91% on room air. WBC increased to 14.2. Objective - Vital Signs Vital signs: Vital Signs Temp 98.9 F 05/23/16 15:00 Pulse 96 05/23/16 15:00 Resp 18 05/23/16 15:00 BP 127/82 05/23/16 15:00 Pulse Ox 91 L 05/23/16 15:00 Intake & Output 05/22/16 05/23/16 05/23/16 18:59 06:59 18:59 Intake Total 550 520 Balance 550 520 Intake: IV 550 Sodium Chloride 0.9% 1, 550 000 ml @ 100 mls/hr IV . Q10H TERI Rx#:[id number] Oral 520 Other: Voiding Method Toilet # Voids 1 3 - Exam GENERAL: Pt awake and alert, well-appearing, well-nourished, and in no acute distress. HEAD: Atraumatic, normocephalic. EYES: Pupils equal and round. Sclera anicteric, conjunctiva are normal. ENT: Oropharynx clear without exudates. Moist mucous membranes. NECK:Normal range of motion, supple without lymphadenopathy or JVD. LUNGS: Breath sounds with expiratory wheezing, crackles to right posterior lobe. HEART: Heart S1, S2, no S3 or S4. Regular rate and rhythm. No murmurs, rubs or gallops. ABDOMEN: Soft, nontender, nondistended, normoactive bowel sounds. EXTREMITIES: 2+ peripheral pulses. No edema. No calf tenderness. NEUROLOGICAL: Pt oriented x 3. No focal deficits. Strength and sensation grossly intact. PSYCH: Normal mood, normal affect. SKIN: Warm, dry, intact. No rashes or lesions. - Labs CBC & Chem 7: 05/23/16 07:00 05/23/16 07:00 Labs: Abnormal Lab Results - Last 24 Hours (Table) 05/22/16 05/22/16 05/23/16 Range/Units 17:00 21:00 07:00 WBC 14.2 H (3.8-10.6) k/uL Neutrophils # 12.9 H (1.3-7.7) k/uL Lymphocytes # 0.9 L (1.0-4.8) k/uL BUN (9-20) mg/dL Glucose (74-99) mg/dL POC Glucose (mg/dL) 192 H 129 H (75-99) mg/dL 05/23/16 05/23/16 05/23/16 Range/Units 07:00 07:29 11:25 WBC (3.8-10.6) k/uL Neutrophils # (1.3-7.7) k/uL Lymphocytes # (1.0-4.8) k/uL BUN 22 H (9-20) mg/dL Glucose 133 H (74-99) mg/dL POC Glucose (mg/dL) 136 H 138 H (75-99) mg/dL 05/23/16 Range/Units 16:29 WBC (3.8-10.6) k/uL Neutrophils # (1.3-7.7) k/uL Lymphocytes # (1.0-4.8) k/uL BUN (9-20) mg/dL Glucose (74-99) mg/dL POC Glucose (mg/dL) 149 H (75-99) mg/dL Microbiology - Last 24 Hours (Table) 05/22/16 17:11 Gram Stain - Preliminary Sputum Sputum Culture - Preliminary Assessment and Plan Plan: Impression and plan: 1. Shortness of breath with wheezing, suspect secondary to exacerbation of asthma and possible pneumonia, left lower lobe, community-acquired. 2. Depression: He'll continue on Wellbutrin and Pristiq. 3. Dehydration: BUN and creatinine ratio is greater than 20-1. Continue IV fluids 100 mL an hour. 4. Seasonal allergy disorder: He'll continue on Claritin 5. Hyperlipidemia: He'll continue on his fenofibrate 6. DVT prophylaxis: Early ambulation is recommended at this time. 7. GI prophylaxis: He'll be started on Pepcid at this time Patient will be started on pneumonia protocol. Pulmonary consult requested, recommendations pending. Continue current medications. Repeat CBC and BMP in a.m. The above impression and plan have been discussed and directed by Dr. Morales. Tegan WATTERS acting as scribe for Dr. Morales.
--- NOTE | 2016-05-24 15:26 | P.PN ---
Subjective Patient is a 50-year-old white male with medical history significant for asthma and pneumonia. Patient admitted with symptoms of mild respiratory distress with intractable coughing and wheezing, failed outpatient treatment. Chest x- ray with evidence of increased strandy density left lower lobe may reflect atelectasis or developing pneumonia. Patient is examined on the medical floor where he is currently lying in bed. Patient continues to complain of shortness of breath and coughing with minimal activity and chest tightness. Patient complains of mild chest discomfort especially when coughing. Denies chills, nausea, vomiting, abdominal pain, constipation, diarrhea, urinary frequency, dysuria, or hematuria. Patient is afebrile. Oxygen saturation 92% on room air. WBC decreased to 12. Objective - Vital Signs Vital signs: Vital Signs Temp 97.2 F L 05/24/16 07:00 Pulse 93 05/24/16 12:45 Resp 20 05/24/16 07:00 BP 129/88 05/24/16 07:00 Pulse Ox 92 L 05/24/16 11:46 Intake & Output 05/23/16 05/24/16 05/24/16 18:59 06:59 18:59 Intake Total 1160 240 Balance 1160 240 Intake: Oral 1160 240 Other: Voiding Method Toilet Toilet Toilet # Voids 3 2 2 # Bowel Movements 0 - Exam GENERAL: Pt awake and alert, well-appearing, well-nourished, and in no acute distress. HEAD: Atraumatic, normocephalic. EYES: Pupils equal and round. Sclera anicteric, conjunctiva are normal. ENT: Oropharynx clear without exudates. Moist mucous membranes. NECK:Normal range of motion, supple without lymphadenopathy or JVD. LUNGS: Breath sounds with expiratory wheezing, crackles to right posterior lobe. HEART: Heart S1, S2, no S3 or S4. Regular rate and rhythm. No murmurs, rubs or gallops. ABDOMEN: Soft, nontender, nondistended, normoactive bowel sounds. EXTREMITIES: 2+ peripheral pulses. No edema. No calf tenderness. NEUROLOGICAL: Pt oriented x 3. No focal deficits. Strength and sensation grossly intact. PSYCH: Normal mood, normal affect. SKIN: Warm, dry, intact. No rashes or lesions. - Labs CBC & Chem 7: 05/24/16 09:42 05/24/16 09:42 Labs: Abnormal Lab Results - Last 24 Hours (Table) 05/23/16 05/23/16 05/24/16 Range/Units 16:29 20:31 07:08 WBC (3.8-10.6) k/uL Neutrophils # (1.3-7.7) k/uL Lymphocytes # (1.0-4.8) k/uL BUN (9-20) mg/dL Glucose (74-99) mg/dL POC Glucose (mg/dL) 149 H 138 H 126 H (75-99) mg/dL 05/24/16 05/24/16 05/24/16 Range/Units 09:42 09:42 11:41 WBC 12.0 H (3.8-10.6) k/uL Neutrophils # 11.0 H (1.3-7.7) k/uL Lymphocytes # 0.6 L (1.0-4.8) k/uL BUN 24 H (9-20) mg/dL Glucose 179 H (74-99) mg/dL POC Glucose (mg/dL) 137 H (75-99) mg/dL Microbiology - Last 24 Hours (Table) 05/22/16 17:11 Gram Stain - Final Sputum Sputum Culture - Final Assessment and Plan Plan: Impression and plan: 1. Shortness of breath with wheezing, suspect secondary to exacerbation of asthma and possible pneumonia, left lower lobe, community-acquired. 2. Depression: He'll continue on Wellbutrin and Pristiq. 3. Dehydration: BUN and creatinine ratio is greater than 20-1. Continue IV fluids 100 mL an hour. 4. Seasonal allergy disorder: He'll continue on Claritin 5. Hyperlipidemia: He'll continue on his fenofibrate 6. DVT prophylaxis: Early ambulation is recommended at this time. 7. GI prophylaxis: He'll be started on Pepcid at this time Continue to monitor patient. Continue IV antibiotics, IV and inhaled steroids, nebulized updraft treatments, supplemental oxygen as needed to keep oxygen saturation greater than 88%. Continue to follow with pulmonary service. Repeat CBC and BMP in a.m. The above impression and plan have been discussed and directed by Dr. Morales. Tegan WATTERS acting as scribe for Dr. Morales.
--- NOTE | 2016-05-24 15:52 | P.PN ---
Subjective This is a very pleasant 50-year-old white male with history of mild intermittent asthma, patient has seen me in the past, however he never came back for follow-up. I have diagnosed him in the past as having bronchial asthma , and I recommended albuterol inhaler to take as needed. His asthma has been so mild to the point that he did not have to take his inhaler much over the last few years. Patient presented initially to his primary care physician in mid April for shortness of breath cough and wheezing, and he was treated with antibiotics and a short course of steroids. He responded quite well initially, however few days after he was done with the treatment, his symptoms came back. And his symptoms are mostly symptoms of cough wheezing shortness of breath. And sometimes the cough is so vigorous to the point that he is almost passing out. According to his he passed out once while he was coughing. But it was only for a few seconds. Considering the intractable cough and wheezing patient was seen in the ER, chest x-ray is suggestive of a limited infiltrate in the left lower lobe, patient was admitted and our consult was initiated. Dr. Ott felt this was an acute exacerbation of chronic bronchial asthma triggered by an acute exacerbation of tracheobronchitis and/or limited left lower lobe community-acquired pneumonia. He is seen again today 05/24/2016 on the regular medical floor in follow-up. He is awake and alert. He is continued to have episodes of coughing with bronchospasm and wheezing. He is slightly better today as compared to yesterday. He has not had any further episodes of passing out all coughing. Sputum cultures pending. Presently the patient is maintaining O2 saturations in the low 90s on room air. He is afebrile. Objective - Vital Signs Vital signs: Vital Signs Temp 97.2 F L 05/24/16 07:00 Pulse 93 05/24/16 12:45 Resp 20 05/24/16 07:00 BP 129/88 05/24/16 07:00 Pulse Ox 92 L 05/24/16 11:46 Intake & Output 05/23/16 05/24/16 05/24/16 18:59 06:59 18:59 Intake Total 1160 240 Balance 1160 240 Intake: Oral 1160 240 Other: Voiding Method Toilet Toilet Toilet # Voids 3 2 2 # Bowel Movements 0 - Exam GENERAL EXAM: Alert, fairly comfortable in no apparent distress. HEAD: Normocephalic. EYES: Normal reaction of pupils, equal size. NOSE: Clear with pink turbinates. THROAT: No erythema or exudates. NECK: No masses, no JVD. CHEST: No chest wall deformity. LUNGS: Equal air entry with bilateral scattered rhonchi, end expiratory wheeze. CVS: S1 and S2 normal with no audible murmur, regular rhythm. ABDOMEN: No hepatosplenomegaly, normal bowel sounds, no guarding or rigidity. SPINE: No scoliosis or deformity SKIN: No rashes CENTRAL NERVOUS SYSTEM: No focal deficits, tone is normal in all 4 extremities. Extremities: There is no peripheral edema. No clubbing, no cyanosis. Peripheral pulses are intact. - Labs CBC & Chem 7: 05/24/16 09:42 05/24/16 09:42 Labs: Abnormal Lab Results - Last 24 Hours (Table) 05/23/16 05/23/16 05/24/16 Range/Units 16:29 20:31 07:08 WBC (3.8-10.6) k/uL Neutrophils # (1.3-7.7) k/uL Lymphocytes # (1.0-4.8) k/uL BUN (9-20) mg/dL Glucose (74-99) mg/dL POC Glucose (mg/dL) 149 H 138 H 126 H (75-99) mg/dL 05/24/16 05/24/16 05/24/16 Range/Units 09:42 09:42 11:41 WBC 12.0 H (3.8-10.6) k/uL Neutrophils # 11.0 H (1.3-7.7) k/uL Lymphocytes # 0.6 L (1.0-4.8) k/uL BUN 24 H (9-20) mg/dL Glucose 179 H (74-99) mg/dL POC Glucose (mg/dL) 137 H (75-99) mg/dL Microbiology - Last 24 Hours (Table) 05/22/16 17:11 Gram Stain - Final Sputum Sputum Culture - Final Assessment and Plan Plan: Impression: #1 Acute exacerbation of mild intermittent asthma complicated by purulent tracheobronchitis and possibly community-acquired pneumonia. #2 Cough syncope. #3 Hyperlipidemia. #4 History of depression. #5 History of multiple environmental ALLERGIES. Plan: The patient was seen and evaluated by Dr. Ott. The patient is improved slightly today as compared to yesterday. We'll continue with his current treatment including antibiotics in the form of Levaquin, bronchodilators, IV Solu-Medrol, Symbicort, Claritin and Singulair. We will increase his activity as tolerated. We'll continue to follow and make further recommendations based on his clinical status.
[2016-05-24 17:20] LABS: Glucose,Whole Blood 113 mg/dL (75-99)
[2016-05-24] MEDS: MONTELUKAST 10 MG TAB PO SCH (20:46)
[2016-05-24 21:12] LABS: Glucose,Whole Blood 181 mg/dL (75-99)
[2016-05-24] MEDS: ZOLPIDEM 10 MG TAB PO PRN (22:43)
[2016-05-25] MEDS: SODIUM CHLORIDE 0.9% 1,000 ML IV SCH ×3 (04:42→23:56)
[2016-05-25] MEDS: methylPREDNISolone SOD SUCCI 125 MG/2 ML VIAL IV SCH ×4 (05:58→23:54)
[2016-05-25 07:30] LABS: Glucose,Whole Blood 113 mg/dL (75-99)
[2016-05-25] MEDS: INSULIN LISPRO (humaLOG) 300 UNIT/3 ML VIAL SQ SCH ×4 (07:42→21:22)
[2016-05-25] MEDS: LORATADINE 10 MG TAB PO SCH (08:06)
[2016-05-25] MEDS: PANTOPRAZOLE 40 MG TABLET PO SCH (08:06)
[2016-05-25] MEDS: DESVENLAFAXINE SUCCINATE 50 MG TAB.ER.24H PO SCH (08:06)
[2016-05-25] MEDS: buPROPion XL 150 MG TAB.ER.24H PO SCH (08:06)
[2016-05-25] MEDS: FENOFIBRATE 160 MG TAB PO SCH (08:06)
[2016-05-25] MEDS: SYMBICORT 160-4.5 MCG INHALER INHALATION SCH ×2 (09:58→11:08)
[2016-05-25 10:18] LABS: Basophils % (A) 0 %; CH 31.1; Eosinophils % (A) 0 %; HCT 42.4 % (39.0-53.0); HGB 14.3 gm/dL (13.0-17.5); Luc # (Auto) 0.04; Luc % (Auto) 0; Lymphocytes # (A) 0.8 k/uL (1.0-4.8); Lymphocytes % (A) 7 %; MCH 30.1 pg (25.0-35.0); MCHC 33.7 g/dL (31.0-37.0); MCV 89.3 fL (80.0-100.0); Mean Platelet Volume 7.5; Monocytes # (A) 0.3 k/uL (0-1.0); Monocytes % (A) 3 %; Neutrophils # (A) 10.7 k/uL (1.3-7.7); Neutrophils % (A) 89 %; RBC 4.75 m/uL (4.30-5.90); RDW 12.8 % (11.5-15.5); WBC 11.9 k/uL (3.8-10.6); WBC (Perox) 12.16
[2016-05-25 10:44] LABS: Anion Gap 12 mmol/L; Blood Urea Nitrogen 25 mg/dL (9-20); Calcium 9.4 mg/dL (8.4-10.2); Carbon Dioxide 28 mmol/L (22-30); Chloride 102 mmol/L (98-107); Glucose 155 mg/dL (74-99); Non-African American GFR(MDRD) >60 (>60 ml/min/1.73 sqM); Potassium 4.6 mmol/L (3.5-5.1); Sodium 142 mmol/L (137-145)
[2016-05-25] MEDS: MULTIVITAMINS, THERA 1 EACH TAB PO SCH (11:01)
[2016-05-25] MEDS: IPRATROPIUM-ALBUTEROL 3 ML NEB INHALATION PRN ×2 (11:07→20:07)
[2016-05-25 11:51] LABS: Glucose,Whole Blood 114 mg/dL (75-99)
[2016-05-25] MEDS: LEVOFLOXACIN 750MG-D5W PMX 750 MG in DEXTROSE/WATER 1 150ML.BAG IVPB SCH (11:59)
--- NOTE | 2016-05-25 13:09 | XR ---
EXAMINATION TYPE: XR chest 2V DATE OF EXAM: 05/25/2016 12:52 PM COMPARISON: None HISTORY: 50-year-old male follow-up left lower lobe infiltrate TECHNIQUE: Frontal and lateral views FINDINGS: The cardiomediastinal silhouette, aorta, and pulmonary vasculature are within normal limits. Mild int erstitial prominence appears chronic. Lungs and pleural spaces are clear. IMPRESSION: No acute cardiopulmonary process. Interval clearance of previous left basilar opacity.
--- NOTE | 2016-05-25 14:44 | P.PN ---
Subjective This is a very pleasant 50-year-old white male with history of mild intermittent asthma, patient has seen me in the past, however he never came back for follow-up. I have diagnosed him in the past as having bronchial asthma , and I recommended albuterol inhaler to take as needed. His asthma has been so mild to the point that he did not have to take his inhaler much over the last few years. Patient presented initially to his primary care physician in mid April for shortness of breath cough and wheezing, and he was treated with antibiotics and a short course of steroids. He responded quite well initially, however few days after he was done with the treatment, his symptoms came back. And his symptoms are mostly symptoms of cough wheezing shortness of breath. And sometimes the cough is so vigorous to the point that he is almost passing out. According to his he passed out once while he was coughing. But it was only for a few seconds. Considering the intractable cough and wheezing patient was seen in the ER, chest x-ray is suggestive of a limited infiltrate in the left lower lobe, patient was admitted and our consult was initiated. Dr. Ott felt this was an acute exacerbation of chronic bronchial asthma triggered by an acute exacerbation of tracheobronchitis and/or limited left lower lobe community-acquired pneumonia. He is seen again today 05/25/2016 in follow-up. He is awake and alert in no acute distress. He does have continued episodes of coughing and bronchospasm. He continues to get quite dizzy and near syncopal with forceful coughing. He is not quite back to his baseline. He remains afebrile. He is maintaining good O2 saturations in the 90s on room air. Objective - Vital Signs Vital signs: Vital Signs Temp 97.0 F L 05/25/16 07:00 Pulse 92 05/25/16 11:18 Resp 20 05/25/16 07:00 BP 141/90 05/25/16 07:00 Pulse Ox 92 L 05/25/16 07:00 Intake & Output 05/24/16 05/25/16 05/25/16 18:59 06:59 18:59 Intake Total 240 500 240 Balance 240 500 240 Intake: Oral 240 500 240 Other: Voiding Method Toilet Toilet # Voids 2 1 3 # Bowel Movements 0 - Exam GENERAL EXAM: Alert, fairly comfortable in no apparent distress. HEAD: Normocephalic. EYES: Normal reaction of pupils, equal size. NOSE: Clear with pink turbinates. THROAT: No erythema or exudates. NECK: No masses, no JVD. CHEST: No chest wall deformity. LUNGS: Equal air entry with bilateral scattered rhonchi, end expiratory wheeze. CVS: S1 and S2 normal with no audible murmur, regular rhythm. ABDOMEN: No hepatosplenomegaly, normal bowel sounds, no guarding or rigidity. SPINE: No scoliosis or deformity SKIN: No rashes CENTRAL NERVOUS SYSTEM: No focal deficits, tone is normal in all 4 extremities. Extremities: There is no peripheral edema. No clubbing, no cyanosis. Peripheral pulses are intact. - Labs CBC & Chem 7: 05/25/16 09:58 05/25/16 09:58 Labs: Abnormal Lab Results - Last 24 Hours (Table) 05/24/16 05/24/16 05/25/16 Range/Units 17:08 21:11 07:17 WBC (3.8-10.6) k/uL Neutrophils # (1.3-7.7) k/uL Lymphocytes # (1.0-4.8) k/uL BUN (9-20) mg/dL Glucose (74-99) mg/dL POC Glucose (mg/dL) 113 H 181 H 113 H (75-99) mg/dL 05/25/16 05/25/16 05/25/16 Range/Units 09:58 09:58 11:41 WBC 11.9 H (3.8-10.6) k/uL Neutrophils # 10.7 H (1.3-7.7) k/uL Lymphocytes # 0.8 L (1.0-4.8) k/uL BUN 25 H (9-20) mg/dL Glucose 155 H (74-99) mg/dL POC Glucose (mg/dL) 114 H (75-99) mg/dL Assessment and Plan Plan: Impression: #1 Acute exacerbation of mild intermittent asthma complicated by purulent tracheobronchitis and possibly community-acquired pneumonia. #2 Cough syncope. #3 Hyperlipidemia. #4 History of depression. #5 History of multiple environmental ALLERGIES. Plan: The patient was seen and evaluated by Dr. Ott. We'll continue with his current treatment including antibiotics in the form of Levaquin, bronchodilators , IV Solu-Medrol, Symbicort, Claritin and Singulair. The patient does remain bronchospastic and wheezy. Not quite back to his baseline. We will increase his activity as tolerated. We'll continue to follow and make further recommendations based on his clinical status.
--- NOTE | 2016-05-25 15:52 | P.PN ---
Subjective Principal diagnosis: Left lower lobe pneumonia Patient is a 50-year-old white male with medical history significant for asthma and pneumonia. Patient admitted with symptoms of mild respiratory distress with intractable coughing and wheezing, failed outpatient treatment. Chest x- ray with evidence of left lower lobe pneumonia. Patient is being followed by pulmonary service. Patient is examined on the medical floor. Patient reports slight improvement in breathing and coughing since yesterday. Denies chills, nausea, vomiting, abdominal pain, constipation, diarrhea, urinary frequency, dysuria, or hematuria. Patient is afebrile. Oxygen saturation 92% on room air. WBC decreased to 11.9. Objective - Vital Signs Vital signs: Vital Signs Temp 97.1 F L 05/25/16 15:00 Pulse 89 05/25/16 15:00 Resp 20 05/25/16 15:00 BP 141/76 05/25/16 15:00 Pulse Ox 92 L 05/25/16 15:00 Intake & Output 05/24/16 05/25/16 05/25/16 18:59 06:59 18:59 Intake Total 240 500 240 Balance 240 500 240 Intake: Oral 240 500 240 Other: Voiding Method Toilet Toilet # Voids 2 1 3 # Bowel Movements 0 - Exam GENERAL: Pt awake and alert, well-appearing, well-nourished, and in no acute distress. HEAD: Atraumatic, normocephalic. EYES: Pupils equal and round. Sclera anicteric, conjunctiva are normal. ENT: Oropharynx clear without exudates. Moist mucous membranes. NECK:Normal range of motion, supple without lymphadenopathy or JVD. LUNGS: Breath sounds diminished with faint expiratory wheezing and crackles to left posterior lobe. HEART: Heart S1, S2, no S3 or S4. Regular rate and rhythm. No murmurs, rubs or gallops. ABDOMEN: Soft, nontender, nondistended, normoactive bowel sounds. EXTREMITIES: 2+ peripheral pulses. No edema. No calf tenderness. NEUROLOGICAL: Pt oriented x 3. No focal deficits. Strength and sensation grossly intact. PSYCH: Normal mood, normal affect. SKIN: Warm, dry, intact. No rashes or lesions. - Labs CBC & Chem 7: 05/25/16 09:58 05/25/16 09:58 Labs: Abnormal Lab Results - Last 24 Hours (Table) 0205/24/16 05/25/16 Range/Units 17:08 21:11 07:17 WBC (3.8-10.6) k/uL Neutrophils # (1.3-7.7) k/uL Lymphocytes # (1.0-4.8) k/uL BUN (9-20) mg/dL Glucose (74-99) mg/dL POC Glucose (mg/dL) 113 H 181 H 113 H (75-99) mg/dL 05/25/16 05/25/16 05/25/16 Range/Units 09:58 09:58 11:41 WBC 11.9 H (3.8-10.6) k/uL Neutrophils # 10.7 H (1.3-7.7) k/uL Lymphocytes # 0.8 L (1.0-4.8) k/uL BUN 25 H (9-20) mg/dL Glucose 155 H (74-99) mg/dL POC Glucose (mg/dL) 114 H (75-99) mg/dL Assessment and Plan Plan: Impression and plan: 1. Shortness of breath with wheezing, suspect secondary to exacerbation of asthma and pneumonia, left lower lobe, community-acquired. 2. Depression: He'll continue on Wellbutrin and Pristiq. 3. Dehydration: BUN and creatinine ratio is greater than 20-1. Continue IV fluids 100 mL an hour. 4. Seasonal allergy disorder: He'll continue on Claritin 5. Hyperlipidemia: He'll continue on his fenofibrate 6. DVT prophylaxis: Early ambulation is recommended at this time. 7. GI prophylaxis: He'll be started on Pepcid at this time Continue to monitor patient. Continue IV antibiotics, IV and inhaled steroids, nebulized updraft treatments, supplemental oxygen as needed to keep oxygen saturation greater than 88%. Continue to follow with pulmonary service. Repeat CBC and BMP in a.m. The above impression and plan have been discussed and directed by Dr. Morales. Tegan WATTERS acting as scribe for Dr. Morales.
[2016-05-25 17:33] LABS: Glucose,Whole Blood 122 mg/dL (75-99)
[2016-05-25 21:06] LABS: Glucose,Whole Blood 144 mg/dL (75-99)
[2016-05-25] MEDS: MONTELUKAST 10 MG TAB PO SCH (21:08)
[2016-05-25] MEDS: ZOLPIDEM 10 MG TAB PO PRN (21:23)
[2016-05-26] MEDS: methylPREDNISolone SOD SUCCI 125 MG/2 ML VIAL IV SCH ×3 (05:55→17:23)
[2016-05-26 07:30] LABS: Glucose,Whole Blood 132 mg/dL (75-99)
[2016-05-26] MEDS: SYMBICORT 160-4.5 MCG INHALER INHALATION SCH (08:03)
[2016-05-26] MEDS: IPRATROPIUM-ALBUTEROL 3 ML NEB INHALATION PRN ×2 (08:03→11:51)
[2016-05-26] MEDS: buPROPion XL 150 MG TAB.ER.24H PO SCH (08:43)
[2016-05-26] MEDS: PANTOPRAZOLE 40 MG TABLET PO SCH (08:43)
[2016-05-26] MEDS: FENOFIBRATE 160 MG TAB PO SCH (08:43)
[2016-05-26] MEDS: LORATADINE 10 MG TAB PO SCH (08:43)
[2016-05-26] MEDS: SODIUM CHLORIDE 0.9% 1,000 ML IV SCH (08:43)
[2016-05-26] MEDS: DESVENLAFAXINE SUCCINATE 50 MG TAB.ER.24H PO SCH (08:43)
[2016-05-26] MEDS: INSULIN LISPRO (humaLOG) 300 UNIT/3 ML VIAL SQ SCH ×3 (08:43→17:23)
[2016-05-26 10:53] LABS: Anion Gap 16 mmol/L; Blood Urea Nitrogen 29 mg/dL (9-20); Calcium 9.8 mg/dL (8.4-10.2); Carbon Dioxide 24 mmol/L (22-30); Chloride 101 mmol/L (98-107); Glucose 143 mg/dL (74-99); Non-African American GFR(MDRD) 59 (>60 ml/min/1.73 sqM); Potassium 4.2 mmol/L (3.5-5.1); Sodium 141 mmol/L (137-145)
[2016-05-26 11:11] LABS: Basophils # (A) 0.1 k/uL (0-0.2); Basophils % (A) 0 %; CH 31.1; Eosinophils % (A) 0 %; HCT 45.7 % (39.0-53.0); HDW 2.91; HGB 15.4 gm/dL (13.0-17.5); Luc # (Auto) 0.15; Luc % (Auto) 1; Lymphocytes # (A) 1.1 k/uL (1.0-4.8); Lymphocytes % (A) 7 %; MCH 30.1 pg (25.0-35.0); MCHC 33.8 g/dL (31.0-37.0); MCV 89.3 fL (80.0-100.0); Mean Platelet Volume 7.1; Monocytes # (A) 0.7 k/uL (0-1.0); Monocytes % (A) 4 %; Neutrophils # (A) 14.3 k/uL (1.3-7.7); Neutrophils % (A) 88 %; RBC 5.12 m/uL (4.30-5.90); RDW 12.8 % (11.5-15.5); WBC 16.3 k/uL (3.8-10.6); WBC (Perox) 16.76
[2016-05-26 11:33] VITALS: RESP 18
[2016-05-26] MEDS: MULTIVITAMINS, THERA 1 EACH TAB PO SCH (12:21)
[2016-05-26 12:22] LABS: Glucose,Whole Blood 90 mg/dL (75-99)
[2016-05-26] MEDS ORDERED: LEVOFLOXACIN 750 MG TAB PO SCH (13:00)
[2016-05-26 15:08] VITALS: BP 125/78; PULSE 97; TEMP 98.4
--- NOTE | 2016-05-26 16:53 | P.DS ---
Providers Date of admission: 05/21/16 19:48 Expected date of discharge: 05/26/16 Attending physician: Miles Levine Consults: 05/22/16 12:07 Consult Physician Routine Consulting Provider: William Chandler Consult Reason/Comments: asthma Do you want consulting provider notified?: Yes Primary care physician: Miles Levine [facility] Course: Patient is a 50-year-old white male with medical history significant for asthma and pneumonia. Patient admitted with symptoms of mild respiratory distress with intractable coughing and wheezing, failed outpatient treatment. Chest x- ray with evidence of left lower lobe pneumonia, community-acquired. Patient was seen and evaluated by Dr. Ott from pulmonary service during his hospital stay. Patient improved significantly with IV antibiotics, inhaled and systemic steroids, IV hydration, and nebulized updraft treatments. Patient was felt stable for discharge to home with follow-up in the outpatient setting. Discharge diagnoses: 1. Shortness of breath with wheezing, suspect secondary to exacerbation of asthma and pneumonia, left lower lobe, community-acquired. 2. Depression 3. Dehydration 4. Seasonal allergy disorder 5. Hyperlipidemia The above impression and plan have been discussed and directed by Dr. Morales. Tegan NELSON-Tk acting as scribe for Dr. Morales. Pertinent Studies: EKG; chest x-ray Patient Condition at Discharge: Good Plan - Discharge Summary New Discharge Prescriptions: Albuterol Inhaler [Ventolin Hfa Inhaler] 2 puff INHALATION Q6HR PRN #1 inhaler PRN Reason: Shortness Of Breath Budesonide-Formot 160-4.5 Mcg [Symbicort 160-4.5 Mcg Inhaler] 2 puff INHALATION BID #1 inhaler Levofloxacin [Levaquin] 750 mg PO DAILY #5 tab Montelukast [Singulair] 10 mg PO HS #30 tab Pantoprazole [Protonix] 40 mg PO AC-BRKFST #30 tablet. predniSONE 0 mg PO DIRECTED #26 tab Discharge Medication List Albuterol Nebulized [Ventolin Nebulized] 2.5 mg INHALATION RT-BID 05/21/16 [ History] Desvenlafaxine Succinate [Pristiq] 100 mg PO QAM 05/21/16 [History] Fenofibrate [Lofibra] 160 mg PO DAILY 05/21/16 [History] Fexofenadine HCl [Lara Allergy] 180 mg PO DAILY 05/21/16 [History] Multivitamins, Thera [Multivitamin] 1 tab PO DAILY 05/21/16 [History] Zolpidem [Ambien] 10 mg PO HS PRN 05/21/16 [History] buPROPion XL [Wellbutrin XL] 150 mg PO DAILY 05/21/16 [History] Acetaminophen Tab [Tylenol] 650 mg PO Q6HR PRN #0 tab 05/26/16 [Rx] Albuterol Inhaler [Ventolin Hfa Inhaler] 2 puff INHALATION Q6HR PRN #1 inhaler 05/26/16 [Rx] Budesonide-Formot 160-4.5 Mcg [Symbicort 160-4.5 Mcg Inhaler] 2 puff INHALATION BID #1 inhaler 05/26/16 [Rx] Levofloxacin [Levaquin] 750 mg PO DAILY #5 tab 05/26/16 [Rx] Montelukast [Singulair] 10 mg PO HS #30 tab 05/26/16 [Rx] Pantoprazole [Protonix] 40 mg PO AC-BRKFST #30 tablet. 05/26/16 [Rx] predniSONE 0 mg PO DIRECTED #26 tab 05/26/16 [Rx] Follow up Appointment(s)/Referral(s): Tanner Ott MD [STAFF PHYSICIAN] - 1 Week (Office currently closed, please call for appointment. ) Miles Levine MD [Primary Care Provider] - 06/01/16 2:00 pm Patient Instructions/Handouts: Acute Bronchitis (GEN) Activity/Diet/Wound Care/Special Instructions: Regular diet. Discharge Disposition: HOME SELF-CARE
== END 2016-05-26 17:40 | disposition home or self-care (01) | DRG 194 ==
LOC: EC 17:09 → 4MS4W 19:48
PROVIDERS: ADMIT Family Medicine; ATTEND Family Medicine
DX: J18.9 Pneumonia, unspecified organism (principal); J45.21 Mild intermittent asthma with (acute) exacerbation; F32.9 Major depressive disorder, single episode, unspecified; E78.1 Pure hyperglyceridemia; J20.9 Acute bronchitis, unspecified; E86.0 Dehydration; F17.200 Nicotine dependence, unspecified, uncomplicated; R55 Syncope and collapse; E78.5 Hyperlipidemia, unspecified; J30.2 Other seasonal allergic rhinitis; Z79.899 Other long term (current) drug therapy
CPT/HCPCS: 36415; 71020; 80048; 80053; 82550; 82553; 83735; 84484; 85025; 85379; 85610; 85730; 87070; 87205; 87502; 94640; 94760

== ENCOUNTER → 2016-06-06 | Outpatient (CLI) | payer BC ==
--- NOTE | 2016-06-06 15:09 | CT ---
EXAMINATION TYPE: CT angio chest DATE OF EXAM: 06/06/2016 3:01 PM COMPARISON: NONE HISTORY: Pt states of syncope and SOB x3 weeks. CT DLP: 422.5 mGycm CONTRAST: CT chest with contrast and 3D reconstruction with MIP imaging is performed with IV Contrast, patient injected with 70 mL of Omnipaque 350. Contrast-enhanced CT of the chest was performed through the course of the pulmonary arteries with ruth ann g and mediastinal window settings submitted. 3D reconstruction with MIP imaging was also performed. PULMONARY ARTERIES: The pulmonary arteries and their major tributaries are patent. I do not see tati dence for sizable filling defect to suggest pulmonary embolic process. LUNGS: The lungs are clear and free of infiltrate. Dependent basilar atelectasis. No pulmonary nodule or mass is detected. No pleural effusion. MEDIASTINUM: Thoracic aorta is of normal caliber . The heart is not enlarged. No evidence for media stinal mass. No mediastinal lymph nodes greater than 1cm. Sliding-type hiatal hernia with a large am ount of mediastinal fat. HILAR STRUCTURES: No evidence for mass. No hilar lymph nodes greater than 1 cm. UPPER ABDOMEN: 3 small gallstones are noted. IMPRESSION: 1. No evidence for Pulmonary embolism at this time.
== END | disposition home or self-care (01) ==
LOC: RADCTMAIN 14:28
PROVIDERS: ATTEND Internal Medicine
DX: R06.02 Shortness of breath (principal); R55 Syncope and collapse; R61 Generalized hyperhidrosis
CPT/HCPCS: 71275; Q9967

== ENCOUNTER → 2018-09-27 | Outpatient (CLI) | payer OTHER ==
--- NOTE | 2018-09-27 09:39 | CT ---
EXAMINATION TYPE: CT chest w con DATE OF EXAM: 09/27/2018 COMPARISON: CTA chest June 06, 2016 HISTORY: cough, bronchitis CT DLP: 551.5 mGycm. Automated Exposure Control for Dose Reduction was Utilized. TECHNIQUE: CT scan of the thorax is performed following with IV Contrast, patient injected with 100 mL of Isovue 300. FINDINGS: LUNGS: There is dependent atelectasis in the bilateral lower lungs. No suspicious nodules or masses. No suspicious consolidation. No pleural effusion or pneumothorax. MEDIASTINUM: There are no greater than 1 cm hilar or mediastinal lymph nodes. No cardiomegaly or pe ricardial effusion is seen. There is redemonstration of large hiatal hernia containing significant p ortions of intra-abdominal mesenteric fat and tiny mesenteric vessels as well as small to moderate po rtion of stomach more prominent from prior study. OTHER: Intraluminal gallstones are present. Liver is low dense consistent with fatty infiltration. Mi ld multilevel spurring. IMPRESSION: No suspicious acute pulmonary process. Large hiatal hernia causes some mass effect along the posterior inferior margin of the heart similar to prior.
== END | disposition home or self-care (01) ==
LOC: RADCTMAIN 06:33
PROVIDERS: ATTEND Family Medicine
DX: K44.9 Diaphragmatic hernia without obstruction or gangrene (principal); J20.9 Acute bronchitis, unspecified
CPT/HCPCS: 71260; Q9967

== ENCOUNTER 2019-03-04 10:13 | Day surgery (SDC) | payer OTHER ==
[2019-02-27 18:14] VITALS: BMI 31.0
[~2019-03-04 10:13] MED LIST: LACTATED RINGERS 1,000 ML IV SCH; LIDOCAINE 1% 20 ML VIAL (10MG/ML) FOR IV START INTRADERMA PRN
[2019-03-04 10:45] VITALS: TEMP 97.9
[2019-03-04] MEDS ORDERED: PROPOFOL 10 MG/ML 20 ML VIAL IV ONE (11:48)
[2019-03-04] MEDS ORDERED: SODIUM CHLORIDE 0.9% 500 ML 500 ML IV ONE (12:21)
--- NOTE | 2019-03-04 12:28 | P.PCN ---
Description of Procedure: Brief history: Patient is a pleasant scheduled for an elective upper endoscopy as well as colonoscopy as a part of evaluation of epigastric pain and altered bowel function. He reports frequent bowel movements prominently in the mornings and after eating. He reports associated urgency. Is also had some dark-colored stool as well as associated abdominal pain, distention and tenderness. Procedure performed: Esophagogastroduodenoscopy with biopsy Colonoscopy with biopsy Estimated blood loss: Minimal. Preoperative diagnosis: Epigastric abdominal pain, altered bowel function/change in bowel habits, no prior endoscopy reported Anesthesia: MAC Procedure: After informed consent was obtained from the patient was brought into the endoscopy unit and IV sedation was administered by anesthesia under continuous monitoring. Initially upper endoscopy was done. The Olympus GF 190 video endoscope was inserted into the mouth and esophagus intubated without any difficulty and was gradually advanced into the stomach and duodenum and carefully examined. The bulb and second part of the duodenum appeared normal, biopsied. The scope was then withdrawn into the stomach adequately insufflated with air and upon careful examination the antrum and body, cardia and fundus appeared normal except for some mild scattered erythema in the antrum and body suggestive of gastritis with biopsies taken . The scope was then withdrawn into the esophagus. The GE junction was located at 40 cm to the incisors With biopsies of the GE junction taken due to minimal LA grade a esophagitis. 5 cm hiatal hernia noted. It appeared regular with no erythema erosions or ulcerations. Rest of the esophagus appeared normal. Patient tolerated the procedure well. At this time the patient continued to remain sedation. Initial digital rectal examination was normal. Olympus CF 190 video colonoscope was then inserted into the rectum and gradually advanced to the cecum without any difficulty. Careful examination was performed as the scope was gradually being withdrawn. The prep was excellent. The cecum, ascending colon, transverse colon, descending colon, sigmoid colon and rectum appeared normal. Retroflexion was performed in the rectum and no lesions were noted. Patient tolerated the procedure well. Impression: 1. Large hiatal hernia. Mild gastritis antrum and body biopsied. Duodenal biopsies. LA grade a esophagitis with GE junction biopsied. 2. Normal-appearing colon from rectum to cecum with random biopsies taken of the right and left colon due to altered bowel function. Recommendations: Findings of this examination were discussed with the patient as well as his family. Okay to resume diet and medications. Await pathology from biopsies. Follow up in gastroenterology clinic as previously scheduled. Consideration for PPI therapy based on biopsy results.
[2019-03-04 12:36] VITALS: RESP 18
[2019-03-04 13:11] VITALS: BP 127/79; PULSE 87
== END 2019-03-04 13:39 | disposition home or self-care (01) ==
LOC: ORWHC2ENDO 10:13
PROVIDERS: ATTEND Internal Medicine
DX: K29.50 Unspecified chronic gastritis without bleeding (principal); K20.0 Eosinophilic esophagitis; K44.9 Diaphragmatic hernia without obstruction or gangrene; R19.4 Change in bowel habit; E78.5 Hyperlipidemia, unspecified; F17.200 Nicotine dependence, unspecified, uncomplicated; F41.9 Anxiety disorder, unspecified; F32.9 Major depressive disorder, single episode, unspecified; J45.909 Unspecified asthma, uncomplicated; Z88.5 Allergy status to narcotic agent; Z79.899 Other long term (current) drug therapy; Z79.51 Long term (current) use of inhaled steroids; Z98.890 Other specified postprocedural states; Z87.81 Personal history of (healed) traumatic fracture; Z80.0 Family history of malignant neoplasm of digestive organs
CPT/HCPCS: 88305; 45380; 43239; J2704

== ENCOUNTER → 2020-04-13 | Outpatient (CLI) | payer OTHER ==
--- NOTE | 2020-04-13 10:11 | FL ---
EXAMINATION TYPE: FL barium swallow DATE OF EXAM: 04/13/2020 CLINICAL HISTORY: Epigastric pain and reflux for 2 years. History of hiatal and umbilical hernia. TECHNIQUE: A double contrast esophagram is performed utilizing air and barium. A total of 28 second s of fluoroscopic time was utilized during procedure and 37 images obtained COMPARISON: CT chest September 27, 2018 FINDINGS: The esophagus shows satisfactory motility and emptying into the stomach. Stable moderate si ze hiatal hernia fixed sliding type redemonstrated. No intraluminal mass or stricture. No significant gastroesophageal reflux was seen during real time performance of this study. IMPRESSION: Stable moderate-sized sliding fixed type hiatal hernia.
== END | disposition home or self-care (01) ==
LOC: RADUSWWP 08:49
PROVIDERS: ATTEND Surgery Plastic and Reconstructive Surgery
DX: K44.9 Diaphragmatic hernia without obstruction or gangrene (principal); K21.9 Gastro-esophageal reflux disease without esophagitis
CPT/HCPCS: 74220

== ENCOUNTER 2020-05-28 11:07 | Day surgery (SDC) | payer OTHER ==
[2020-05-26 16:55] VITALS: BMI 31.0
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
[~2020-05-28 11:07] MED LIST changes: +ACETAMINOPHEN TAB 500 MG TAB PO STA; +DEXAMETHASONE SOD PHOSPHATE 4 MG/ML 1 ML VIAL IV ONE; +GABAPENTIN 300 MG CAP PO STA; +HEPARIN SODIUM,PORCINE 5,000 UNIT/ML 1 ML VIAL SQ PRN; +HYDROmorphone 0.5 MG/0.5 ML SYRINGE IVP PRN; -LACTATED RINGERS 1,000 ML IV SCH; -LIDOCAINE 1% 20 ML VIAL (10MG/ML) FOR IV START INTRADERMA PRN; +MELOXICAM 7.5 MG TAB PO SCH; +ONDANSETRON 4 MG/2 ML VIAL IVP ONE; +TAMSULOSIN 0.4 MG CAP.ER.24H PO STA
[2020-05-28] MEDS ORDERED: LACTATED RINGERS 1,000 ML IV ONE ×2 (12:40)
[2020-05-28 13:14] LABS: Basophils # (A) 0.1 k/uL (0-0.2); Basophils % (A) 1 %; Eosinophils # (A) 0.2 k/uL (0-0.7); Eosinophils % (A) 3 %; HCT 35.9 % (39.0-53.0); HGB 11.3 gm/dL (13.0-17.5); Hypochromasia Moderate; Lymphocytes # (A) 1.4 k/uL (1.0-4.8); Lymphocytes % (A) 25 %; MCH 22.8 pg (25.0-35.0); MCHC 31.4 g/dL (31.0-37.0); MCV 72.7 fL (80.0-100.0); Mean Platelet Volume 7.9; Microcytosis Slight; Monocytes # (A) 0.3 k/uL (0-1.0); Monocytes % (A) 6 %; Neutrophils # (A) 3.6 k/uL (1.3-7.7); Neutrophils % (A) 64 %; Platelet Count 285 k/uL (150-450); Poikilocytosis Slight; RBC 4.94 m/uL (4.30-5.90); RDW 15.3 % (11.5-15.5); WBC 5.6 k/uL (3.8-10.6)
[2020-05-28 13:23] LABS: ALT 33 U/L (4-49); AST 32 U/L (17-59); African American GFR (CKD) >90 (>60 ml/min/1.73 sqM); Albumin 4.6 g/dL (3.5-5.0); Alkaline Phosphatase 73 U/L (38-126); Anion Gap 7 mmol/L; Blood Urea Nitrogen 15 mg/dL (9-20); Calcium 9.1 mg/dL (8.4-10.2); Carbon Dioxide 27 mmol/L (22-30); Chloride 105 mmol/L (98-107); Glucose 97 mg/dL (74-99); Non-African American GFR(CKD) >90 (>60 ml/min/1.73 sqM); Potassium 4.2 mmol/L (3.5-5.1); Sodium 139 mmol/L (137-145); Total Protein 7.4 g/dL (6.3-8.2)
[2020-05-28] MEDS ORDERED: MIDAZOLAM 2 MG/2 ML VIAL IVP ONE (13:23)
[2020-05-28] MEDS ORDERED: HYDROmorphone (PF) 1 MG/ML ONE (13:32)
[2020-05-28] MEDS ORDERED: NEOSTIGMINE 1 MG/ML 10 ML VIAL ONE (13:32)
[2020-05-28] MEDS ORDERED: PROPOFOL 10 MG/ML 20 ML VIAL IV ONE (13:32)
[2020-05-28] MEDS ORDERED: PROPOFOL 10 MG/ML 20 ML VIAL ONE (13:32)
[2020-05-28] MEDS ORDERED: ROCURONIUM 10 MG/ML (10 ML VIAL) IV ONE (13:32)
[2020-05-28] MEDS ORDERED: fentaNYL (PF) 50 MCG/ML 2 ML AMP ONE (13:32)
[2020-05-28] MEDS ORDERED: ROPIVACAINE 5 MG/ML 30 ML VIAL ONE (13:32)
[2020-05-28] MEDS ORDERED: BUPIVACAIN-EPI 0.5%-1:200,000 30 ML VIAL SQ ONE ×2 (13:32→14:01)
[2020-05-28] MEDS ORDERED: GLYCOPYRROLATE 0.2 MG/ML 2 ML VIAL ONE (13:32)
[2020-05-28] MEDS ORDERED: SUCCINYLCHOLINE CHLORIDE 100 MG/5 ML SYR IV ONE (13:32)
[2020-05-28] MEDS ORDERED: LIDOCAINE 1% INJ 10MG/ML (20 ML MDV) ONE (13:32)
--- NOTE | 2020-05-28 15:05 | P.OP ---
Date of Procedure: 05/28/20 Description of Procedure: SURGEON: KAJAL MACHADO MD PREOPERATIVE DIAGNOSES: 1. Initial incarcerated umbilical hernia 2. Hypertensive heart disease with cardiac arrhythmia 3. Iron deficiency anemia 4. Depressive disorder 5. Hyperlipidemia 6. Gastroesophageal reflux disease 7. Asthma POSTOPERATIVE DIAGNOSES: 1. Initial incarcerated umbilical hernia, 3 cm 2. Hypertensive heart disease with cardiac arrhythmia 3. Iron deficiency anemia 4. Depressive disorder 5. Hyperlipidemia 6. Gastroesophageal reflux disease 7. Asthma OPERATION: 1. Robotic-assisted da Haja Xi laparoscopic repair of initial incarcerated umbilical hernia with mesh, ventralight ST mesh 11.4 cm Anesthesia: GETA, regional, local Estimated Blood Loss (ml): 5 Pathology: 1. Incarcerated umbilical hernia defect COMPLICATIONS: None. Operative Findings: 1. Umbilical hernia defect 2 x 3 cm 2. Fascia repaired using #1 V-lock suture INDICATIONS: The patient is a 54-year-old male who presents with a personal history of abdominal wall hernias. Surgical intervention with laparoscopic versus robotic and open techniques were reviewed. Placement of mesh was also reviewed. Benefits and risks were thoroughly described. Informed consent was obtained. DESCRIPTION OF PROCEDURE: The patient was brought into the operating room and laid in supine position. After general induction, the abdomen had been prepped and draped in standard sterile fashion. Ioban draping was also placed. Prior to incision, a timeout protocol was confirmed with surgical team regarding the patient's name including procedures to be performed. The robot was primed prior to the procedure. A field block using local anesthetic was placed along hernia site including the proposed port sites. Initial incision was made with an #11 blade along the left upper quadrant. A 0 degree 5 mm laparoscopic trocar entry was performed and insufflated. Three 8 mm ports were placed along the left lateral abdominal wall under direct localization after exchanging the 5-mm for an 8 mm port. Placements of the ports were 15 cm from the target anatomy and 10 cm apart. An accessory 12 mm port was placed at the right upper quadrant for exchange of mesh including sutures. The [employer] robot was previously primed, prepped and draped then docked from the right side of the patient onto the left side of the patient. I then sat at the robot [employer] Xi console where working arms of the robot including Bovie cautery connected to robotic scissors, needle roll off driver, and graspers placed by the machine operator assistant. Incarcerated omental contents were found along the upper midline defect including umbilicus. The defect was reduced with preperitoneal fat. Distinct fascial umbilical hernia defect 2 x 3 cm was then identified. The incarcerated contents were reduced as the peritoneal fat was cleaned from the abdominal wall. Next, hemostasis was checked with cautery. The hernia defects were oversewn using #1 nonabsorbable V-lock suture with fascial imbrication x 2. Next, ventralight ST mesh 11.4 cm was placed with the rough si de towards the abdominal wall as to cover the epigastric including umbilical defect. 2-0 VLOC 9 inch sutures were used to fixate the mesh. A final endoscopic imaging was obtained. All instruments and pneumoperitoneum were evacuated from the abdominal cavity. The da Haja Xi robot was undocked from the patient. I re-scrubbed into the case for closure of incisions. The fascia of the 12-mm port was probed and less than 8-mm in size. The incisions were reapproximated using 4-0 Monocryl in an interrupted subcuticular fashion. Liquid glue was applied to the skin after cleansing the skin with normal saline and dilute hydrogen peroxide. An abdominal binder was placed. An umbilical dressing was placed prior. At the end of the procedure, needle, sponge, and instrument count had been verified correct by agriculture technician. The patient was taken to the postanesthesia care unit in stable condition. Plan - Discharge Summary Discharge Rx Participant: No New Discharge Prescriptions: No Action Desvenlafaxine Succinate [Pristiq] 100 mg PO DAILY Diltiazem HCl [Cartia Xt] 180 mg PO DAILY Pitavastatin Calcium [Livalo] 4 mg PO DAILY Loratadine 10 mg PO DAILY Naproxen Sodium [Aleve] 220 mg PO BID PRN PRN Reason: Pain Cholecalciferol [Vitamin D3 (25 Mcg = 1000 Iu)] 25 mcg PO DAILY Ascorbic Acid [Vitamin C] 1,000 mg PO DAILY [place]-3 Fatty Acids/Fish Oil [Fish Oil 1,000 mg Softgel] 1 each PO DAILY Albuterol Inhaler [Ventolin Hfa Inhaler] 1 - 2 puff INHALATION DIRECTED PRN PRN Reason: asthma sx Discharge Medication List Desvenlafaxine Succinate [Pristiq] 100 mg PO DAILY 05/21/16 [History] Diltiazem HCl [Cartia Xt] 180 mg PO DAILY 02/27/19 [History] Loratadine 10 mg PO DAILY 02/27/19 [History] Pitavastatin Calcium [Livalo] 4 mg PO DAILY 02/27/19 [History] Albuterol Inhaler [Ventolin Hfa Inhaler] 1 - 2 puff INHALATION DIRECTED PRN 05/26/20 [History] Ascorbic Acid [Vitamin C] 1,000 mg PO DAILY 05/26/20 [History] Cholecalciferol [Vitamin D3 (25 Mcg = 1000 Iu)] 25 mcg PO DAILY 05/26/20 [History] Naproxen Sodium [Aleve] 220 mg PO BID PRN 05/26/20 [History] [place]ral-3 Fatty Acids/Fish Oil [Fish Oil 1,000 mg Softgel] 1 each PO DAILY 05/26/20 [History]
[2020-05-28 15:08] VITALS: TEMP 97
[2020-05-28 15:25] VITALS: RESP 16
[2020-05-28] MEDS: LACTATED RINGERS 1,000 ML IV SCH ×2 (15:37→16:24)
--- NOTE | 2020-05-28 16:39 | P.ANPRN ---
Procedure Note - Anesthesia - Nerve Block Performed Bilateral Rectus Abdominis Single Time Out Performed: Yes (1322) Date of Procedure: 05/28/20 Procedure Start Time: 13:23 Procedure Stop Time: :28 Location of Patient: PreOp Indication: Acute Post-Operative Pain, Requested by Surgeon Specifically requested for management of pain by DrPaola: Leana Willson Sedation Type: Sedate with meaningful contact maintained Preparation: Sterile Prep Position: Supine Catheter: None Needle Types: Pajunk Needle Gauge: 21 Ultrasound used to visualize needle placement: Yes Ultrasound used to observe medication spread: Yes Injectate: 0.5% Ropivacaine (see comment for volume) (20cc each side, 40cc total) Blood Aspirated: No Pain Paresthesia on Injection Noted: No Resistance on Injection: Normal Image Stored and Saved: Yes Events: Uneventful and Well Tolerated
[2020-05-28 17:09] VITALS: BP 145/92; PULSE 82
== END 2020-05-28 17:49 | disposition home or self-care (01) ==
LOC: OR 11:07
PROVIDERS: ATTEND Surgery Plastic and Reconstructive Surgery
DX: K42.9 Umbilical hernia without obstruction or gangrene (principal); I11.9 Hypertensive heart disease without heart failure; D50.9 Iron deficiency anemia, unspecified; F32.9 Major depressive disorder, single episode, unspecified; E78.5 Hyperlipidemia, unspecified; K21.9 Gastro-esophageal reflux disease without esophagitis; J45.909 Unspecified asthma, uncomplicated; Z87.01 Personal history of pneumonia (recurrent); Z98.890 Other specified postprocedural states; Z83.3 Family history of diabetes mellitus; Z82.5 Family history of asthma and other chronic lower respiratory diseases; Z80.0 Family history of malignant neoplasm of digestive organs; Z79.899 Other long term (current) drug therapy; Z88.5 Allergy status to narcotic agent
CPT/HCPCS: 49653; S2900; 64488; 80053; 85025; 88302

== ENCOUNTER → 2020-08-11 | Outpatient (CLI) | payer OTHER ==
[2020-08-11 16:55] LABS: HCT 32.9 % (39.6-50.0); HGB 9.1 g/dL (13.0-17.0); MCH 20.6 pg (27.0-32.0); MCHC 27.7 g/dL (32.0-37.0); MCV 74.6 fL (80.0-97.0); Mean Platelet Volume 10.5 fL (9.5-12.2); Platelet Count 340 X 10*3/uL (140-440); RBC 4.41 X 10*6/uL (4.40-5.60); WBC 5.85 X 10*3/uL (4.50-10.00)
[2020-08-11 19:18] LABS: % Iron Saturation 4.34 (15.00-50.00); African American GFR (CKD) 88.4 (60.0-200.0); Albumin/Globulin Ratio 2.78 (1.60-3.17); BUN/Creat Ratio 14.55 Ratio (12.00-20.00); Calcium 9.7 mg/dL (8.7-10.3); Chol/HDL Ratio 3.45; Ferritin 4.2 ng/mL (22.0-322.0); Globulin 1.8 g/dL (1.6-3.3); LDL Cholesterol,Calculated 92.8 mg/dL (0.0-131.0); Magnesium 2.4 mg/dL (1.5-2.4); Non-African American GFR(CKD) 76.2 (60.0-200.0); Phosphorus 3.7 mg/dL (2.4-5.1); Potassium 5.2 mmol/L (3.5-5.5); Total Bilirubin 0.6 mg/dL (0.3-1.2); Total Protein 6.8 g/dL (6.2-8.2); VLDL Calculation 15.2 mg/dL (5.00-40.00)
[2020-08-11 19:32] LABS: Hemoglobin A1C 5.5 % (4.0-6.0)
[2020-08-11 21:30] LABS: Folate, Serum 19.8 ng/mL
[2020-08-12 00:22] LABS: INR 0.99 (0.90-1.11); Partial Thromboplastin Time 25.2 sec (23.5-31.0); Prothrombin Time 10.8 sec (9.9-11.9)
[2020-08-13 07:15] LABS: Vitamin A 47 ug/dL (38-106)
[2020-08-13 07:55] LABS: Vit B1(Thiamine) 41 ug/L (38-122)
[2020-08-14 08:10] LABS: Zinc, Serum 90 ug/dL (60-130)
== END | disposition home or self-care (01) ==
LOC: LABWHC1 09:26
PROVIDERS: ATTEND Surgery Plastic and Reconstructive Surgery
DX: E89.1 Postprocedural hypoinsulinemia (principal); E21.1 Secondary hyperparathyroidism, not elsewhere classified; E44.0 Moderate protein-calorie malnutrition; E55.9 Vitamin D deficiency, unspecified; K74.1 Hepatic sclerosis; N19 Unspecified kidney failure; D50.8 Other iron deficiency anemias; K50.90 Crohn's disease, unspecified, without complications
CPT/HCPCS: 36415; 80053; 80061; 82306; 82525; 82607; 82728; 82746; 83036; 83540; 83550; 83735; 83970; 84100; 84134; 84255; 84425; 84443; 84590; 84630; 85027; 85610; 85730

== ENCOUNTER 2020-08-27 09:39 | Day surgery (SDC) | payer OTHER ==
[2020-08-25 08:25] VITALS: BMI 29.8
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
[2020-08-27] MEDS ORDERED: LIDOCAINE 1% (10MG/ML) FOR IV START INTRADERMA ONE (10:24)
[2020-08-27] MEDS ORDERED: LACTATED RINGERS 1,000 ML IV ONE (10:25)
[2020-08-27 10:26] VITALS: TEMP 97.7
[2020-08-27] MEDS ORDERED: PROPOFOL 10 MG/ML 20 ML VIAL IV ONE (11:28)
[2020-08-27] MEDS ORDERED: LIDOCAINE 1% INJ 10MG/ML (20 ML MDV) ONE (11:28)
--- NOTE | 2020-08-27 11:42 | P.PCN ---
Date of Procedure: 08/27/20 Description of Procedure: PREOPERATIVE DIAGNOSIS: Anemia Gastroesophageal reflux disease POSTOPERATIVE DIAGNOSIS: Anemia Gastroesophageal reflux disease Paraesophageal diaphragmatic hiatal hernia OPERATION: Esophagogastroduodenoscopy with biopsies along antrum. SURGEON: Leana Willson MD ANESTHESIA: MAC. INDICATIONS: The patient is a 54-year-old male who presents with a history of reflux disease and hiatal hernia. Benefits and risks of the procedure were described. Informed consent was obtained. DESCRIPTION: The patient was brought into the endoscopy suite and laid in the left lateral decubitus position. An Olympus gastroscope was passed along the posterior oropharynx down to the distal esophagus where the squamocolumnar junction was encountered at 37 cm from the incisors. The stomach was entered and no bile reflux was found. Additional findings are listed below. Biopsies with cold f orceps were obtained of the antrum. The first through third portion of the duodenum was examined and unremarkable. Retroflexion of the scope confirmed Hill grade 4 lower esophageal valve. The squamocolumnar junction demonstrated LA grade B erosive esophagitis. The stomach was desufflated. The patient tolerated the procedure well. FINDINGS: Squamocolumnar junction 37 cm from the incisors. Diaphragmatic hiatus at 45 cm. Hiatal hernia, 8 cm, sliding paraesophageal type IV Hill grade 4 lower esophageal valve. LA grade B erosive esophagitis. No active duodenitis. Chronic gastritis with recent bleed RECOMMENDATIONS: Upper endoscopy as needed. Paraesophageal hiatal hernia with stress gastritis as a cause for anemia
--- NOTE | 2020-08-27 12:00 | P.PCN ---
Date of Procedure: 08/27/20 Description of Procedure: PREOPERATIVE DIAGNOSIS: Anemia POSTOPERATIVE DIAGNOSIS: Anemia OPERATION: Colonoscopy to the cecum, ileocecal valve and appendiceal orifice. SURGEON: Leana Willson MD. ANESTHESIA: MAC. INDICATIONS: The patient is a 54-year-old male who presents with symptomatic anemia. Lower endoscopy are performed for diagnostic and therapeutic management. Benefits and risks were described and informed consent was obtained. DESCRIPTION OF PROCEDURE: The patient had undergone Sutab prep. The patient had been brought into the operating room and laid in the left lateral decubitus position. After adequate intravenous sedation, the rectum was examined with 2% lidocaine jelly. No external hemorrhoids were encountered. The rectal tone was within normal limits. No lesions were palpated in the rectal vault. An Olympus colonoscope was advanced until the cecum, ileocecal valve and appendiceal orifice were clearly viewed. The prep was excellent. No scattered diverticulosis was encountered. No colonic polyps were found. No evidence of focal colitis was found. Retroflexion of the scope demonstrated grade 1 internal hemorrhoids without active bleeding or inflammation. The colon was desufflated. The patient had tolerated the procedure well. Withdrawal time was over 6 minutes. FINDINGS: Aronchick preparation quality scale 1 (1-5) Internal hemorrhoids, grade 1 No external prolapsed hemorrhoids. No arteriovenous malformations. No adenomatous polyps. No focal colitis. RECOMMENDATIONS: Lower endoscopy in 5 years, 2025 Plan - Discharge Summary Discharge Rx Participant: No New Discharge Prescriptions: Continue Desvenlafaxine Succinate [Pristiq] 100 mg PO DAILY Diltiazem HCl [Cartia Xt] 180 mg PO DAILY Loratadine 10 mg PO DAILY Cholecalciferol [Vitamin D3 (25 Mcg = 1000 Iu)] 25 mcg PO DAILY Ascorbic Acid [Vitamin C] 1,000 mg PO DAILY [place]-3 Fatty Acids/Fish Oil [Fish Oil 1,000 mg Softgel] 1 each PO DAILY Pitavastatin Calcium [Livalo] 4 mg PO QAM Ferrous Sulfate [Iron] 325 mg PO DAILY Discontinued Naproxen Sodium [Aleve] 220 mg PO BID PRN PRN Reason: Pain Discharge Medication List Desvenlafaxine Succinate [Pristiq] 100 mg PO DAILY 05/21/16 [History] Diltiazem HCl [Cartia Xt] 180 mg PO DAILY 02/27/19 [History] Loratadine 10 mg PO DAILY 02/27/19 [History] Ascorbic Acid [Vitamin C] 1,000 mg PO DAILY 05/26/20 [History] Cholecalciferol [Vitamin D3 (25 Mcg = 1000 Iu)] 25 mcg PO DAILY 05/26/20 [History] [place]-3 Fatty Acids/Fish Oil [Fish Oil 1,000 mg Softgel] 1 each PO DAILY 05/26/20 [History] Ferrous Sulfate [Iron] 325 mg PO DAILY 08/25/20 [History] Pitavastatin Calcium [Livalo] 4 mg PO QAM 08/25/20 [History] Follow up Appointment(s)/Referral(s): Leana Willson MD [STAFF PHYSICIAN] - 09/10/20 Patient Instructions/Handouts: Hiatal Hernia (DC), *Surgery [facility] - (Anesthesia) Endoscopy Discharge Instructions, Colonoscopy (DC) Activity/Diet/Wound Care/Special Instructions: Repeat colonoscopy 5 years, 2025 Discharge Disposition: HOME SELF-CARE
[2020-08-27 12:15] VITALS: BP 131/90; PULSE 71; RESP 16
== END 2020-08-27 12:32 | disposition home or self-care (01) ==
LOC: ORWHC2ENDO 09:39
PROVIDERS: ATTEND Surgery Plastic and Reconstructive Surgery
DX: K29.50 Unspecified chronic gastritis without bleeding (principal); K22.10 Ulcer of esophagus without bleeding; K21.9 Gastro-esophageal reflux disease without esophagitis; D64.9 Anemia, unspecified; K44.9 Diaphragmatic hernia without obstruction or gangrene; K64.0 First degree hemorrhoids; E78.5 Hyperlipidemia, unspecified; J45.909 Unspecified asthma, uncomplicated; H91.90 Unspecified hearing loss, unspecified ear; I10 Essential (primary) hypertension; Z87.01 Personal history of pneumonia (recurrent); J42 Unspecified chronic bronchitis; Z98.890 Other specified postprocedural states; Z82.5 Family history of asthma and other chronic lower respiratory diseases; Z83.3 Family history of diabetes mellitus; Z80.0 Family history of malignant neoplasm of digestive organs; Z79.899 Other long term (current) drug therapy; Z88.5 Allergy status to narcotic agent
CPT/HCPCS: 88305; 45378; 43239; J2001; J2704

== ENCOUNTER 2020-09-04 11:15 | Observation (INO) | payer OTHER ==
[2020-08-31 08:30] VITALS: BMI 29.2
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
[~2020-09-04 11:15] MED LIST changes: +ACETAMINOPHEN TAB 500 MG TAB PO PRN; -ACETAMINOPHEN TAB 500 MG TAB PO STA; +GABAPENTIN 300 MG CAP PO PRN; -GABAPENTIN 300 MG CAP PO STA; -HEPARIN SODIUM,PORCINE 5,000 UNIT/ML 1 ML VIAL SQ PRN; +HEPARIN SODIUM,PORCINE/PF 5,000 UNIT/0.5 ML SYRINGE SQ PRN; -HYDROmorphone 0.5 MG/0.5 ML SYRINGE IVP PRN; +MELOXICAM 7.5 MG TAB PO PRN; -MELOXICAM 7.5 MG TAB PO SCH; +MIDAZOLAM 2 MG/2 ML VIAL IV PRN; +SCOPOLAMINE 1.5MG/72HR PATCH TRANSDERM ONE; +SCOPOLAMINE 1.5MG/72HR PATCH TRANSDERM PRN; +TAMSULOSIN 0.4 MG CAP.ER.24H PO PRN; -TAMSULOSIN 0.4 MG CAP.ER.24H PO STA; +fentaNYL (PF) 50 MCG/ML 2 ML AMP IV PRN
[2020-09-04] MEDS: LACTATED RINGERS 1,000 ML IV SCH (11:58)
[2020-09-04] MEDS ORDERED: DEXAMETHASONE SOD PHOSPHATE 10 MG/ML 1 ML VIAL ONE (13:52)
[2020-09-04] MEDS ORDERED: MIDAZOLAM 2 MG/2 ML VIAL ONE (13:52)
[2020-09-04] MEDS ORDERED: fentaNYL (PF) 50 MCG/ML 2 ML AMP ONE (13:52)
[2020-09-04] MEDS ORDERED: SUCCINYLCHOLINE CHLORIDE VIAL 200 MG/10 ML VIAL IV ONE (13:52)
[2020-09-04] MEDS ORDERED: LIDOCAINE 1% INJ 10MG/ML (20 ML MDV) ONE (13:52)
[2020-09-04] MEDS ORDERED: NEOSTIGMINE 1 MG/ML 10 ML VIAL ONE (13:52)
[2020-09-04] MEDS ORDERED: ROCURONIUM 10 MG/ML (5 ML VIAL) IV ONE (13:52)
[2020-09-04] MEDS ORDERED: PROPOFOL 10 MG/ML 20 ML VIAL IV ONE (13:52)
[2020-09-04] MEDS ORDERED: GLYCOPYRROLATE 0.2 MG/ML 2 ML VIAL ONE (13:52)
[2020-09-04] MEDS ORDERED: KETAMINE 10 MG/ML 20 ML VIAL ONE (13:52)
[2020-09-04] MEDS ORDERED: HYDROmorphone (PF) 1 MG/ML ONE (13:52)
[2020-09-04] MEDS ORDERED: LIDOCAINE 1%-EPI 1:100,000 20 ML VIAL SQ ONE ×2 (13:54→14:23)
[2020-09-04] MEDS ORDERED: LACTATED RINGERS 1,000 ML IV ONE (16:15)
[2020-09-04] MEDS ORDERED: HYDROmorphone 1 MG/ML 1 ML SYRINGE IVP PRN (17:05)
[2020-09-04] MEDS ORDERED: NALOXONE 0.4 MG/ML 1 ML VIAL IV PRN (17:05)
[2020-09-04] MEDS ORDERED: diphenhydrAMINE 50 MG/ML 1 ML VIAL IVP PRN (17:05)
[2020-09-04] MEDS ORDERED: DEXAMETHASONE SOD PHOSPHATE 10 MG/ML 1 ML VIAL IV PRN (17:12)
--- NOTE | 2020-09-04 17:26 | P.OP ---
Date of Procedure: 09/04/20 Description of Procedure: SURGEON: KAJAL MACHADO MD PREOPERATIVE DIAGNOSES: 1. Symptomatic paraesophageal diaphragmatic hiatal hernia, type III 2. Gastroesophageal reflux disease 3. Symptomatic iron deficiency anemia due to large paraesophageal hiatal hernia 4. Hypertensive heart disease with cardiomyopathy 5. Hyperlipidemia 6. Depressive disorder POSTOPERATIVE DIAGNOSES: 1. Symptomatic paraesophageal diaphragmatic hiatal hernia, type III, large 2. Gastroesophageal reflux disease 3. Symptomatic iron deficiency anemia due to large paraesophageal hiatal hernia 4. Hypertensive heart disease with cardiomyopathy 5. Hyperlipidemia 6. Depressive disorder 7. Peritoneal intra-abdominal adhesions, epigastrium OPERATION: 1. Robotic-assisted da Haja Xi laparoscopic repair of LARGE incarcerated paraesophageal hiatal hernia, 8 x 67cm, with [place] Biopatch A 8 x 8 cm. 2. Robotic-assisted da Haja Xi laparoscopic excision of mediastinal incarcerated mass 3. Robotic-assisted da Haja Xi laparoscopic lysis of adhesions, epigastric 4 Intraoperative esophagogastroduodenoscopy 5. Placement of esophageal bougie 56 Solomon Islander bougie ANESTHESIA: General with local anesthetic. ESTIMATED BLOOD LOSS: 20 mL SPECIMENS REMOVED: 1. Mediastinal mass 10 x 6 cm COMPLICATIONS: None. Condition: stable Disposition: floor FINDINGS: 1. Midline intra-thoracic LARGE incarcerated paraesophageal hiatal hernia 8 x 7 cm, over 60% of stomach 2. Intraoperative upper endoscopy confirms complete closure of hiatal hernia from Hill grade 4 to Hill grade 1 3. Lower esophageal sphincter at 45 cm from the incisors 4. Epigastric adhesions omentum to abdominal wall lysed using vessel sealer INDICATIONS: The patient is a 54-year-old male who presents with regurgitation, gastroesophageal reflux disease poorly controlled despite medications, and a symptomatic diaphragmatic hiatal hernia. He also has profound moderate symptomatic iron deficiency anemia. Preoperative workup including upper endoscopy demonstrated a Hill grade 4 lower esophageal valve. He completed barium swallow. Given the severity of symptoms, he had elected for surgical intervention. Benefits and risks including bleeding, infection, recurrence, dysphagia, injury to the lung, need for further surgery was described at length. Informed consent was obtained. DESCRIPTION: The patient was brought into the operating room and placed in supine position. Preoperatively he had received heparin subcutaneously for DVT prophylaxis. After general induction, the abdomen was prepped and draped in standard sterile fashion. The patient had previously voided prior to coming to the operating room. Ioban draping was placed along the abdomen. A timeout protocol was confirmed with the surgical team, for which the patient's name, procedure to be performed including DVT prophylaxis with bilateral SCDs, and preoperative antibiotics were also confirmed. A robotic da Haja Xi system was prepped and primed. At 12 cm from the xiphoid to just below the umbilicus, proposed port sites were marked with indelible marker along the left axillary line, left mid-clavicular line with each ports were marked 8 cm from each other. A 5 mm 0 degrees laparoscopic trocar entry was performed along the left upper quadrant. The abdomen was insufflated to 15 mmHg pressure was tolerated well. Diagnostic laparoscopy demonstrated no injury to bowel, viscera, or mesentery. No injury had occurred to the small bowel or viscera. Next, one 8 mm robotic port was placed along the right upper abdomen. An 8-mm port was were placed along the left lateral abdominal wall. The camera 8-mm port was maintained along the epigastrium via the hernia defect. Another 12 mm port was placed along the left upper abdominal wall after exchanging the 5 mm port. Please note that the ports were placed at least 20 cm away from the target anatomy. Care was taken to check that each robotic arm were safely away from collision with the bed or the patient. At the epigastrium, a small sized Crystal liver retractor was placed under di rect visualization with the Iron Vault Teller placed under the right shoulder of the patient. All robotic arms were used. The patient was repositioned in reverse Trendelenburg position at 21-degrees after lowering the bed. The robot was docked above the right side of the patient. Using a grasper for arm 3, a grasper for arm 1, including vessel sealer for arm 2, the robotic system was docked and primed as described. Instruments were interchanged by the general office assistant. I had sat at the console. Initial attention was brought to epigastrium where omental to abdominal wall adhesions from previous hernia repair was identified and resected using vessel sealer. The gastrohepatic ligament was cleaved using a vessel sealer. The hiatal hernia sac was retracted from the intrathoracic portion into the abdomen. Next, the phrenoesophageal ligament was mobilized and the distal esophagus was mobilized circumferentially. The left and right crura was identified. Circumferentially, the hernia sac was excised and brought into the peritoneal cavity. Moderate dissection into the mediastinum to the azygous vein and along the aorta was performed to release the esophagus into the abdominal cavity. Additionally, adhesions about the mid body of the stomach and short gastrics were also released. Care was taken to avoid any gastrotomy. Additionally, incarcerated hiatal hernia sac with mediastinal mass was resected in piecemeal during thoracoscopy of the mediastinum. The measured defect was consistent with 8 cm axial length and 7 cm in width. After dissection, the distal esophagus of 2 cm was brought into the abdominal cavity. Once the hiatus and crura was dissected, 0 VLOC nonabsorbable suture was placed to re-approximate the diaphragmatic hiatus posteriorly. To buttress the repair, a [place] Biopatch A was prepared along the back table and cut in half of a kelly-hole fashion as to reinforce the repair as an underlay. The mesh was placed along the crural repair and tagged using horizontal mattress sutures using 2-0 VLOC. Secondary to her esophageal dysmotility including dysphagia, intraoperative placement of 56-Sol[place] Islander bougie was advanced. I went to the head of the bed to perform intraoperative esophagogastroduodenoscopy. An Olympus gastroscope was passed through posterior oropharynx. Retroflexion of the scope confirmed a Hill grade 1 lower esophageal valve. Bougie was passed and left for 1 minute to allow dilation of the esophagus. The scope was re-entered confirmed no esophageal or gastric tears. The stomach had been desufflated. No evidence of leaks were found of the esophagus or stomach. The squamocolumnar junction and hiatus was placed at 45 cm from the incisors. The GI tract with desufflated This concluded the endoscopic portion of the case. The robot was undocked from the patient. I re-scrubbed into the case. All instruments and pneumoperitoneum and specimens were evacuated from the abdominal cavity. Incisions were reapproximated using 4-0 Monocryl in an i nterrupted subcuticular fashion. Liquid glue was applied to the skin. Local anesthetic was infiltrated in all wounds for postop analgesia. Multiple intra-abdominal films were obtained. At the end of the procedure, needle, sponge, and instrument count was verified correct by the manager surgical. The patient had tolerated the procedure well and was taken to the postanesthesia unit in stable condition. Intraoperative films were reviewed with the patient's family who was pleased with the level of care. Console time 119 minutes. COMPLEXITY: Additional time spent for reduction of large incarcerated paraesophageal hiatal hernia incorporating more than 60% of the stomach. Mediastinal mass also resected 10 x 6 cm and removed in piecemeal.
[2020-09-04] MEDS ORDERED: SODIUM CHLORIDE 0.9% 1,000 ML IV ONE (17:45)
[2020-09-04] MEDS ORDERED: ACETAMINOPHEN IV (For NPO) 1,000 MG in EMPTY BAG 1 BAG IVPB ONE (18:00)
[2020-09-04] MEDS: 0.9% NACL WITH KCL 20 MEQ/L 1,000 ML IV SCH (18:17)
[2020-09-04] MEDS: METOCLOPRAMIDE 5 MG/ML 2 ML VIAL IVP SCH (18:18)
[2020-09-04] MEDS: DEXAMETHASONE SOD PHOSPHATE 4 MG/ML 1 ML VIAL IV SCH (18:18)
[2020-09-04] MEDS: ONDANSETRON 4 MG/2 ML VIAL IVP SCH (18:19)
[2020-09-04] MEDS: HYOSCYAMINE ORAL DROPS 1.875 MG/15 ML BOTTLE PO SCH (18:19)
[2020-09-04] MEDS: KETOROLAC 15 MG/ML 1 ML VIAL IVP SCH (18:19)
[2020-09-04] MEDS: SIMETHICONE 40 MG/0.6 ML DROPS 2,000 MG/30 ML BOTTLE PO SCH (18:23)
[2020-09-05] MEDS: DEXAMETHASONE SOD PHOSPHATE 4 MG/ML 1 ML VIAL IV SCH ×3 (00:23→11:40)
[2020-09-05] MEDS: KETOROLAC 15 MG/ML 1 ML VIAL IVP SCH ×3 (00:23→11:41)
[2020-09-05] MEDS: ONDANSETRON 4 MG/2 ML VIAL IVP SCH ×3 (00:24→11:41)
[2020-09-05] MEDS: METOCLOPRAMIDE 5 MG/ML 2 ML VIAL IVP SCH ×3 (00:24→11:41)
[2020-09-05] MEDS: HYOSCYAMINE ORAL DROPS 1.875 MG/15 ML BOTTLE PO SCH ×3 (00:24→11:41)
[2020-09-05] MEDS: SIMETHICONE 40 MG/0.6 ML DROPS 2,000 MG/30 ML BOTTLE PO SCH ×3 (00:43→11:43)
[2020-09-05] MEDS: 0.9% NACL WITH KCL 20 MEQ/L 1,000 ML IV SCH ×2 (00:43→08:56)
--- NOTE | 2020-09-05 07:26 | FL ---
EXAMINATION TYPE: FL UGI limited DATE OF EXAM: 09/05/2020 LIMITED UGI-ESOPHAGRAM: CLINICAL HISTORY: Hiatal hernia repair yesterday. Prior surgeries of hiatal and umbilical hernia rep air. TECHNIQUE: Limited esophagram is performed utilizing 20 oz of Isovue-370. A total of 23 seconds of f luoroscopic time was utilized during procedure and 77 images obtained. Delayed overhead images perfor med. FINDINGS: The patient swallowed contrast without difficulty or delay. Some dysmotility with abnormal secondary and tertiary contractions. There is good flow of contrast along the diaphragmatic hiatus i nto the stomach, there is no evidence of contrast extravasation to suggest leak. No persistent hiatal hernia is seen. Patient remains asymptomatic. Delayed imaging over 10 minutes does not document flow of contrast out of the gastric antrum. Order requested evaluation through the duodenal sweep. IMPRESSION: No evidence of leak or significant obstruction status post Sky fundoplication surgery yesterday. Delayed gastric emptying noted.
[2020-09-05] MEDS: LACTATED RINGERS 1,000 ML IV SCH (07:28)
[2020-09-05] MEDS ORDERED: 0.9% NACL WITH KCL 20 MEQ/L 1,000 ML IV SCH (08:00)
[2020-09-05] MEDS ORDERED: TAMSULOSIN 0.4 MG CAP.ER.24H PO SCH (08:30)
[2020-09-05 09:00] LABS: Anisocytosis Moderate; Basophils % (A) 0 %; Eosinophils % (A) 0 %; HCT 35.1 % (39.0-53.0); HGB 11.6 gm/dL (13.0-17.5); Hypochromasia Slight; Lymphocytes # (A) 0.6 k/uL (1.0-4.8); Lymphocytes % (A) 7 %; MCH 26.1 pg (25.0-35.0); MCHC 33.1 g/dL (31.0-37.0); MCV 78.8 fL (80.0-100.0); Mean Platelet Volume 7.4; Microcytosis Moderate; Monocytes # (A) 0.2 k/uL (0-1.0); Monocytes % (A) 3 %; Neutrophils # (A) 6.8 k/uL (1.3-7.7); Neutrophils % (A) 89 %; Platelet Count 251 k/uL (150-450); RBC 4.45 m/uL (4.30-5.90); RDW 23.9 % (11.5-15.5); WBC 7.7 k/uL (3.8-10.6)
[2020-09-05] MEDS ORDERED: ENOXAPARIN 30 MG/0.3 ML SYRINGE SQ SCH (09:00)
[2020-09-05] MEDS ORDERED: LORATADINE 10 MG TAB PO SCH (09:00)
[2020-09-05] MEDS ORDERED: PANTOPRAZOLE 40 MG/10 ML VIAL IV SCH (09:00)
[2020-09-05] MEDS ORDERED: DILTIAZEM CD 180 MG CAP.ER.24H PO SCH (09:00)
[2020-09-05 09:12] LABS: African American GFR (CKD) >90 (>60 ml/min/1.73 sqM); Anion Gap 9 mmol/L; Blood Urea Nitrogen 16 mg/dL (9-20); Calcium 8.7 mg/dL (8.4-10.2); Carbon Dioxide 24 mmol/L (22-30); Chloride 105 mmol/L (98-107); Non-African American GFR(CKD) >90 (>60 ml/min/1.73 sqM); Phosphorus 3.9 mg/dL (2.5-4.5); Potassium 4.5 mmol/L (3.5-5.1); Sodium 138 mmol/L (137-145)
--- NOTE | 2020-09-05 12:32 | P.PN ---
Subjective Progress Note Date: 09/05/20 CHIEF COMPLAINT: Paraesophageal hiatal hernia with symptomatic anema HISTORY OF PRESENT ILLNESS: The patient is a 54-year-old status post repair of incarcerated paraesophageal hiatal hernia with volvulus and symptomatic anemia, 09/04/20. He reports no further reflux. No dysphagia. He is tolerating diet. Reynaldo diet reviewed. "My breathing is better. I don't get fatigued anymore with sitting up." ROS: No reports of nausea and vomiting. No fevers or chills. No new chest pain. No productive sputum PHYSICAL EXAM: VITAL SIGNS: Reviewed CONSTITUTIONAL: Well developed and in no acute distress. EYES: Conjuctivae without sclera icterus. Extraocular movements grossly intact. HEAD, EARS, NOSE, THROAT: Moist buccal mucosa. Head is atraumatic, normocephalic. Hears conversational speech. No nasal drainage. RESPIRATORY: Non-labored respirations and equal bilateral excursions. CARDIOVASCULAR: Palpable 2+ radial pulses. ABDOMEN: Intact incisions. No peritonitis. MUSCULOSKELETAL: No gross deformity of the lower extremities noted. No clubbing. No cyanosis. SKIN: Good skin turgor. Well perfused. NEUROLOGIC: Cranial nerves II through XII grossly intact. No focal or lateralizing signs. PSYCH: Appropriate affect. Alert and oriented to person, place and time. STUDIES: Reviewed. Esophagram independently seen without obstruction. CLINICAL LABS: Reviewed ASSESSMENT: 1. Incarcerated paraesophageal hiatal hernia with volvulus status post repair 2. Gastroesophageal reflux disease. PLAN: 1. Reynaldo diet reviewed. No straws, carbonated beverages, citrus or tomato based foods. 2. No lifting over 4 pounds for 4 weeks October 05 3. Overall stable for discharge 4. Non-narcotic pain plan reviewed. 5. Discontinue Omeprazole for discharge. Objective - Vital Signs Vital signs: Vital Signs Temp 97.8 F 09/05/20 02:00 Pulse 100 09/05/20 02:00 Resp 20 09/05/20 02:00 BP 142/89 09/05/20 02:00 Pulse Ox 92 L 09/05/20 02:00 Intake & Output 09/04/20 09/05/20 09/05/20 18:59 06:59 18:59 Intake Total 2550 200 Output Total 20 Balance 2530 200 Weight 109 kg Intake: IV 2550 Oral 200 Output: Estimated Blood Loss 20 Other: Voiding Method Toilet # Voids 2 - Labs CBC & Chem 7: 09/05/20 08:39 09/05/20 08:39 Labs: Abnormal Lab Results - Last 24 Hours (Table) 09/05/20 Range/Units 08:39 Hgb 11.6 L (13.0-17.5) gm/dL Hct 35.1 L (39.0-53.0) % MCV 78.8 L (80.0-100.0) fL RDW 23.9 H (11.5-15.5) % Lymphocytes # 0.6 L (1.0-4.8) k/uL
--- NOTE | 2020-09-05 12:34 | P.DS ---
Providers Date of admission: 09/05/20 01:14 Expected date of discharge: 09/05/20 Attending physician: Leana Willson Primary care physician: Miles Levine - Discharge Diagnosis(es) (1) Chronic gastric volvulus Current Visit: Yes Status: Acute (2) Peritoneal adhesions Current Visit: Yes Status: Acute (3) Hypertensive cardiomyopathy Current Visit: Yes Status: Acute (4) Iron deficiency anemia, unspecified Current Visit: No Status: Acute (5) Paraesophageal hernia with obstruction but no gangrene Current Visit: No Status: Acute Hospital Course: POSTOPERATIVE DIAGNOSES: 1. Symptomatic paraesophageal diaphragmatic hiatal hernia, type III, large 2. Gastroesophageal reflux disease 3. Symptomatic iron deficiency anemia due to large paraesophageal hiatal hernia 4. Hypertensive heart disease with cardiomyopathy 5. Hyperlipidemia 6. Depressive disorder 7. Peritoneal intra-abdominal adhesions, epigastrium 8. Intermittent gastric volvulus COURSE: The patient is a 54-year-old who presented with incarcerated paraesophageal hiatal hernia with volvulus and symptomatic anemia. He underwent repair 09/04/20. He reports no further reflux. No dysphagia. He is tolerating diet. Reynaldo diet reviewed. "My breathing is better. I don't get fatigued a nymore with sitting up." ROS: No reports of nausea and vomiting. No fevers or chills. No new chest pain. No productive sputum PHYSICAL EXAM: VITAL SIGNS: Reviewed CONSTITUTIONAL: Well developed and in no acute distress. EYES: Conjuctivae without sclera icterus. Extraocular movements grossly intact. HEAD, EARS, NOSE, THROAT: Moist buccal mucosa. Head is atraumatic, normocephalic. Hears conversational speech. No nasal drainage. RESPIRATORY: Non-labored respirations and equal bilateral excursions. CARDIOVASCULAR: Palpable 2+ radial pulses. ABDOMEN: Intact incisions. No peritonitis. MUSCULOSKELETAL: No gross deformity of the lower extremities noted. No clubbing. No cyanosis. SKIN: Good skin turgor. Well perfused. NEUROLOGIC: Cranial nerves II through XII grossly intact. No focal or lateralizing signs. PSYCH: Appropriate affect. Alert and oriented to person, place and time. STUDIES: Reviewed. Esophagram independently seen without obstruction. CLINICAL LABS: Reviewed ASSESSMENT: 1. Incarcerated paraesophageal hiatal hernia with volvulus status post repair 2. Gastroesophageal reflux disease. PLAN: 1. Reynaldo diet reviewed. No straws, carbonated beverages, citrus or tomato based foods. 2. No lifting over 4 pounds for 4 weeks October 05 3. Overall stable for discharge 4. Non-narcotic pain plan reviewed. 5. Discontinue Omeprazole for discharge. Procedures: OPERATION: 1. Robotic-assisted da Haja Xi laparoscopic repair of LARGE incarcerated paraesophageal hiatal hernia, 8 x 67cm, with [place] Biopatch A 8 x 8 cm. 2. Robotic-assisted da Haja Xi laparoscopic excision of mediastinal incarcerated mass 3. Robotic-assisted da Haja Xi laparoscopic lysis of adhesions, epigastric 4 Intraoperative esophagogastroduodenoscopy 5. Placement of esophageal bougie 56 Burmese bougie 6. Reduction of intermittent gastric volvulus ANESTHESIA: General with local anesthetic. ESTIMATED BLOOD LOSS: 20 mL SPECIMENS REMOVED: 1. Mediastinal mass 10 x 6 cm COMPLICATIONS: None. Condition: stable Disposition: floor FINDINGS: 1. Midline intra-thoracic LARGE incarcerated paraesophageal hiatal hernia 8 x 7 cm, over 60% of stomach 2. Intraoperative upper endoscopy confirms complete closure of hiatal hernia from Hill grade 4 to Hill grade 1 3. Lower esophageal sphincter at 45 cm from the incisors 4. Epigastric adhesions omentum to abdominal wall lysed using vessel sealer 5. Intermittent gastric volvulus with partial obstruction reduced Patient Condition at Discharge: Good Plan - Discharge Summary Discharge Rx Participant: No New Discharge Prescriptions: New Acetaminophen Oral Susp [Tylenol Oral Susp] 1,000 mg PO Q4-6H PRN #400 ml PRN Reason: Pain Ondansetron Odt [Zofran Odt] 4 mg PO Q8HR PRN #9 tab PRN Reason: Nausea bisacodyL [Dulcolax] 5 mg PO DAILY PRN #10 tablet.dr PRN Reason: Constipation Simethicone 40 mg/0.6 ml Drops [Mylicon Drops] 40 mg PO HS PRN #30 ml PRN Reason: Gas Continue Desvenlafaxine Succinate [Pristiq] 100 mg PO DAILY Diltiazem HCl [Cartia Xt] 180 mg PO DAILY Loratadine 10 mg PO DAILY Cholecalciferol [Vitamin D3 (25 Mcg = 1000 Iu)] 25 mcg PO DAILY Ascorbic Acid [Vitamin C] 1,000 mg PO DAILY [place]-3 Fatty Acids/Fish Oil [Fish Oil 1,000 mg Softgel] 1 each PO DAILY Pitavastatin Calcium [Livalo] 4 mg PO QAM Ferrous Sulfate [Iron] 325 mg PO DAILY Discharge Medication List Desvenlafaxine Succinate [Pristiq] 100 mg PO DAILY 05/21/16 [History] Diltiazem HCl [Cartia Xt] 180 mg PO DAILY 02/27/19 [History] Loratadine 10 mg PO DAILY 02/27/19 [History] Ascorbic Acid [Vitamin C] 1,000 mg PO DAILY 05/26/20 [History] Cholecalciferol [Vitamin D3 (25 Mcg = 1000 Iu)] 25 mcg PO DAILY 05/26/20 [History] [place]-3 Fatty Acids/Fish Oil [Fish Oil 1,000 mg Softgel] 1 each PO DAILY 05/26/20 [History] Ferrous Sulfate [Iron] 325 mg PO DAILY 08/25/20 [History] Pitavastatin Calcium [Livalo] 4 mg PO QAM 08/25/20 [History] Acetaminophen Oral Susp [Tylenol Oral Susp] 1,000 mg PO Q4-6H PRN #400 ml 09/05/20 [Rx] Ondansetron Odt [Zofran Odt] 4 mg PO Q8HR PRN #9 tab 09/05/20 [Rx] Simethicone 40 mg/0.6 ml Drops [Mylicon Drops] 40 mg PO PCHS PRN #30 ml 09/05/20 [Rx] bisacodyL [Dulcolax] 5 mg PO DAILY PRN #10 tablet. 09/05/20 [Rx] Follow up Appointment(s)/Referral(s): Leana Willson MD [STAFF PHYSICIAN] - 09/10/20 Patient Instructions/Handouts: Hiatal Hernia (DC), Laparoscopic Hiatal Hernia Repair (DC) Activity/Diet/Wound Care/Special Instructions: Liquid diet only for 2 weeks until September 18 No lifting over 4 pounds in 4 weeks, October 05August shower No soaking in bath tubs for 2 weeks, September 18 Please notify your surgeon if you develop nausea and vomiting including new onset of abdominal pain. Please ambulate at all times. Use Simethicone, Gas-X, ibuprofen, Aleve Tylenol scheduled for the next 24-48 hours for best pain relief. Use ice along incisions for the today to prevent swelling. Please open, cut, crush pills larger than the size of a tic tack No carbonated beverages. No straws. Do not remove scopolamine patch for 3 days, if present Discharge Disposition: HOME SELF-CARE
[2020-09-05 12:43] VITALS: BP 131/73; PULSE 71; RESP 16; TEMP 98
[2020-09-06] MEDS ORDERED: bisacodyL 5 MG TABLET.DR PO PRN (08:00)
== END 2020-09-05 13:30 | disposition home or self-care (01) ==
LOC: OR 11:15 → 5NMEDONC 16:42 → OR 09-05 06:14
PROVIDERS: ADMIT Surgery Plastic and Reconstructive Surgery; ATTEND Surgery Plastic and Reconstructive Surgery
DX: K44.0 Diaphragmatic hernia with obstruction, without gangrene (principal); K21.9 Gastro-esophageal reflux disease without esophagitis; K66.0 Peritoneal adhesions (postprocedural) (postinfection); K22.4 Dyskinesia of esophagus; K31.89 Other diseases of stomach and duodenum; D50.9 Iron deficiency anemia, unspecified; E78.5 Hyperlipidemia, unspecified; I11.9 Hypertensive heart disease without heart failure; I43 Cardiomyopathy in diseases classified elsewhere; J45.909 Unspecified asthma, uncomplicated; H91.90 Unspecified hearing loss, unspecified ear; F32.9 Major depressive disorder, single episode, unspecified; Z20.822 Contact with and (suspected) exposure to COVID-19; Z79.899 Other long term (current) drug therapy; Z88.5 Allergy status to narcotic agent; Z87.01 Personal history of pneumonia (recurrent); Z98.890 Other specified postprocedural states; Z82.5 Family history of asthma and other chronic lower respiratory diseases; Z83.3 Family history of diabetes mellitus; Z80.0 Family history of malignant neoplasm of digestive organs
CPT/HCPCS: 43282; 43450; S2900; 80051; 82310; 82565; 83735; 84100; 84520; 85025; 87635; 88307

== ENCOUNTER → 2020-09-30 | Outpatient (CLI) | payer OTHER ==
[2020-09-30 13:20] VITALS: BP 129/86; PULSE 16; TEMP 98.4
[2020-09-30] MEDS: SODIUM CHLORIDE 0.9% 1,000 ML IV SCH ×2 (13:20→14:13)
== END | disposition home or self-care (01) ==
LOC: PROCWHC3 13:00
PROVIDERS: ATTEND Surgery Plastic and Reconstructive Surgery
DX: E86.0 Dehydration (principal)
CPT/HCPCS: 96365; 96366

== ENCOUNTER 2020-10-29 06:33 | Day surgery (SDC) | payer OTHER ==
[2020-10-28 11:49] VITALS: BMI 28.5
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
[~2020-10-29 06:33] MED LIST changes: -DEXAMETHASONE SOD PHOSPHATE 4 MG/ML 1 ML VIAL IV ONE; -GABAPENTIN 300 MG CAP PO PRN; +INDOCYANINE GREEN 25 MG VIAL IV PRN; -MIDAZOLAM 2 MG/2 ML VIAL IV PRN; -ONDANSETRON 4 MG/2 ML VIAL IVP ONE; -SCOPOLAMINE 1.5MG/72HR PATCH TRANSDERM ONE; -SCOPOLAMINE 1.5MG/72HR PATCH TRANSDERM PRN; -fentaNYL (PF) 50 MCG/ML 2 ML AMP IV PRN
[2020-10-29] MEDS ORDERED: ONDANSETRON 4 MG/2 ML VIAL ONE (07:05)
[2020-10-29 07:23] LABS: Anisocytosis Slight; Basophils # (A) 0.1 k/uL (0-0.2); Basophils % (A) 1 %; Eosinophils # (A) 0.4 k/uL (0-0.7); Eosinophils % (A) 5 %; HCT 40.5 % (39.0-53.0); HGB 14.5 gm/dL (13.0-17.5); Lymphocytes # (A) 1.6 k/uL (1.0-4.8); Lymphocytes % (A) 23 %; MCH 27.7 pg (25.0-35.0); MCHC 35.8 g/dL (31.0-37.0); MCV 77.4 fL (80.0-100.0); Mean Platelet Volume 7.5; Microcytosis Moderate; Monocytes # (A) 0.5 k/uL (0-1.0); Monocytes % (A) 8 %; Neutrophils # (A) 4.1 k/uL (1.3-7.7); Neutrophils % (A) 61 %; Platelet Count 224 k/uL (150-450); Poikilocytosis Slight; RBC 5.23 m/uL (4.30-5.90); RDW 19.8 % (11.5-15.5); WBC 6.8 k/uL (3.8-10.6)
[2020-10-29] MEDS ORDERED: LACTATED RINGERS 1,000 ML IV ONE ×2 (07:25→09:35)
[2020-10-29] MEDS ORDERED: FAMOTIDINE 20 MG/2 ML VIAL IV ONE (07:25)
[2020-10-29] MEDS ORDERED: DEXAMETHASONE SOD PHOSPHATE 4 MG/ML 1 ML VIAL IV ONE (07:26)
[2020-10-29] MEDS ORDERED: SUCCINYLCHOLINE CHLORIDE VIAL 200 MG/10 ML VIAL IV ONE (07:26)
[2020-10-29] MEDS ORDERED: ROCURONIUM 10 MG/ML (5 ML VIAL) IV ONE (07:26)
[2020-10-29] MEDS ORDERED: PROPOFOL 10 MG/ML 20 ML VIAL IV ONE (07:26)
[2020-10-29] MEDS ORDERED: MIDAZOLAM 2 MG/2 ML VIAL ONE (07:26)
[2020-10-29] MEDS ORDERED: GLYCOPYRROLATE 0.2 MG/ML 2 ML VIAL ONE (07:26)
[2020-10-29] MEDS ORDERED: fentaNYL (PF) 50 MCG/ML 2 ML AMP ONE (07:26)
[2020-10-29] MEDS ORDERED: LIDOCAINE 1% INJ 10MG/ML (20 ML MDV) ONE (07:26)
[2020-10-29] MEDS ORDERED: NEOSTIGMINE 1 MG/ML 10 ML VIAL ONE (07:26)
[2020-10-29] MEDS ORDERED: ONDANSETRON 4 MG/2 ML VIAL IVP ONE (07:26)
[2020-10-29 07:41] LABS: ALT 42 U/L (4-49); AST 37 U/L (17-59); African American GFR (CKD) >90 (>60 ml/min/1.73 sqM); Albumin 4.4 g/dL (3.5-5.0); Alkaline Phosphatase 79 U/L (38-126); Anion Gap 10 mmol/L; Blood Urea Nitrogen 18 mg/dL (9-20); Calcium 9.6 mg/dL (8.4-10.2); Carbon Dioxide 25 mmol/L (22-30); Chloride 106 mmol/L (98-107); Glucose 103 mg/dL (74-99); Non-African American GFR(CKD) >90 (>60 ml/min/1.73 sqM); Potassium 3.8 mmol/L (3.5-5.1); Sodium 141 mmol/L (137-145); Total Bilirubin 1.5 mg/dL (0.2-1.3); Total Protein 6.9 g/dL (6.3-8.2)
[2020-10-29] MEDS ORDERED: LIDOCAINE 1%-EPI 1:100,000 20 ML VIAL SQ ONE (08:01)
--- NOTE | 2020-10-29 08:38 | P.OP ---
Date of Procedure: 10/29/20 Description of Procedure: SURGEON: LEANA WILLSON MD PREOPERATIVE DIAGNOSES: 1. Chronic cholecystitis with cholelithiasis 2. Hypertensive heart disease with ischemic cardiomyopathy 3. Chronic diarrhea 4. Depressive disorder 5. Pre-existing iron deficiency anemia POSTOPERATIVE DIAGNOSES: 1. Chronic cholecystitis with cholelithiasis 2. Hypertensive heart disease with ischemic cardiomyopathy 3. Chronic diarrhea 4. Depressive disorder 5. Pre-existing iron deficiency anemia OPERATION: Robotic-assisted da Haja Xi laparoscopic cholecystectomy, multiport with FIREFLY ESTIMATED BLOOD LOSS: 5 mL. SPECIMENS REMOVED: Gallbladder. COMPLICATIONS: None. OPERATIVE FINDINGS: 1. Chronic cholecystitis with multiple gallstones over 4 identified at least 5 mm in size INDICATIONS: The patient is a 54-year-old male who presents with chronic diarrhea and symptomatic gallstones. Robotic assisted laparoscopic approach was described. Benefits and risks of the procedure including but not limited to bleeding, infection, injury to the biliary tree was described. Informed consent was obtained. DESCRIPTION OF PROCEDURE: Patient was brought to the operating room, placed in supine position. After general induction, the abdomen had been prepped and draped in standard sterile fashion. The robotic da Haja XI system was primed. After a timeout protocol was performed, the patient had been prepped and draped in standard sterile fashion. The patient was injected with indocyanine green. A 5 mm 0 degrees laparoscopic trocar entry was performed along the left upper quadrant. The abdomen insufflated to 15 mmHg pressure which was tolerated well. Diagnostic laparoscopy demonstrated no injury to bowel viscera or mesentery. The liver surface was unremarkable. Next, two 8 mm robotic ports were placed along the right upper abdomen. The camera 8-mm port was maintained along the epigastrium. Another 8 mm port was placed along the left upper abdominal wall after exchanging the 5 mm port. Please note that the ports were placed at least 10 to 15 cm away from the target anatomy of the gallbladder. The robot was docked along the left lateral abdomen. The patient was repositioned in reverse Trendelenburg position. Using a grasper for arm 3, a grasper for arm 4, including hook cautery for arm 1, the robotic system was docked and primed as described. Instruments were interchanged by the carpenter's assistant including hook cautery, Bovie cautery and clip appliers. I had sat at the console. Next attention was brought to the infundibulum and cystic structures. The infundibulum and cystic duct were dissected free from surrounding tissues. The cystic duct was isolated. FIREFLY was used to identify the cystic artery and cystic structures. A critical view of safety was obtained. Large PLASTIC clips were used throughout the entire case. Using a clip foundation maker, 2 clips were placed at the junction of the infundibulum and cystic duct. The cystic duct was divided between clips. Next, the cystic artery was similarly clipped and cauterized. Electro-Bovie cautery was used to remove the gallbladder from the hepatic fossa. Hemostasis was checked and found to be adequate. The robot was undocked. I re-scrubbed into the case. Using a 10 mm Endo Catch bag via the left upper quadrant incision, the specimen was removed from the abdominal cavity. All pneumoperitoneum instruments were evacuated from the abdominal cavity. The incisions were reapproximated using 4-0 Monocryl in an interrupted subcuticular fashion. Fascial defects were less than 8 mm in size. Please note along the trocar sites, local anesthetic was placed as a field block prior to insertion of all instruments. Liquid glue was applied to the skin. At the end of the procedure needle, sponge, and instrument count had been verified correct by the operating room surgical technologist. The patient was transferred to postanesthesia care unit in stable condition. Intraoperative films were shared with the patient's family. Plan - Discharge Summary New Discharge Prescriptions: New metroNIDAZOLE [Flagyl] 500 mg PO TID #30 tab Simethicone [Gas-X] 125 mg PO AC-TID PRN #20 capsule PRN Reason: Pain Acetaminophen Tab [Tylenol Tab] 1,000 mg PO Q6HR PRN #30 tablet PRN Reason: Pain Ibuprofen [Motrin] 600 mg PO Q8HR PRN #30 tab PRN Reason: Pain Omeprazole [PriLOSEC] 40 mg PO DAILY #14 cap Continue Desvenlafaxine Succinate [Pristiq] 100 mg PO DAILY Diltiazem HCl [Cartia Xt] 180 mg PO DAILY Loratadine 10 mg PO DAILY Pitavastatin Calcium [Livalo] 4 mg PO QAM Simethicone 40 mg/0.6 ml Drops [Mylicon Drops] 40 mg PO PCHS PRN #30 ml PRN Reason: Gas Discontinued Ondansetron Odt [Zofran Odt] 4 mg PO Q8HR PRN #9 tab PRN Reason: Nausea [place] Bismol Otc 2 tab PO DIRECTED PRN PRN Reason: DIARRHEA, UPSET STOMACH Ferrous Sulfate [Iron] 325 mg PO DAILY Bismuth Subsalicylate [Kaopectate] 262 mg PO DIRECTED PRN PRN Reason: Diarrhea Discharge Medication List Desvenlafaxine Succinate [Pristiq] 100 mg PO DAILY 05/21/16 [History] Diltiazem HCl [Cartia Xt] 180 mg PO DAILY 02/27/19 [History] Loratadine 10 mg PO DAILY 02/27/19 [History] Pitavastatin Calcium [Livalo] 4 mg PO QAM 08/25/20 [History] Simethicone 40 mg/0.6 ml Drops [Mylicon Drops] 40 mg PO PCHS PRN #30 ml 09/05/20 [Rx] Acetaminophen Tab [Tylenol Tab] 1,000 mg PO Q6HR PRN #30 tablet 10/29/20 [Rx] Ibuprofen [Motrin] 600 mg PO Q8HR PRN #30 tab 10/29/20 [Rx] Omeprazole [PriLOSEC] 40 mg PO DAILY #14 cap 10/29/20 [Rx] Simethicone [Gas-X] 125 mg PO AC-TID PRN #20 capsule 10/29/20 [Rx] metroNIDAZOLE [Flagyl] 500 mg PO TID #30 tab 10/29/20 [Rx] Follow up Appointment(s)/Referral(s): Leana Willson MD [STAFF PHYSICIAN] - 11/03/20 Patient Instructions/Handouts: Cholecystitis (GEN), Gallstones (DC), Laparoscopic Cholecystectomy (DC), Low Fat Diet (DC), *Surgery [facility] - Managing Your Pain After Surgery Without Opioids Activity/Diet/Wound Care/Special Instructions: Recommend low-fat diet for the next 2 days. No lifting over 10 pounds in 2 weeks until November 12. May shower. No bath tub soaks for two weeks until November 12. Diet as tolerated. Use Tylenol, simethicone and ibuprofen or Aleve scheduled for the next 24-48 hours for best pain relief. Use ice along incisions for today to prevent swelling. Discharge Disposition: HOME SELF-CARE
[2020-10-29 08:46] VITALS: TEMP 97.7
[2020-10-29 08:52] VITALS: RESP 16
[2020-10-29] MEDS ORDERED: IBUPROFEN 200 MG TAB PO ONE (10:24)
[2020-10-29 10:44] VITALS: BP 119/83; PULSE 75
== END 2020-10-29 11:11 | disposition home or self-care (01) ==
LOC: OR 06:33
PROVIDERS: ATTEND Surgery Plastic and Reconstructive Surgery
DX: K80.10 Calculus of gallbladder with chronic cholecystitis without obstruction (principal); I25.5 Ischemic cardiomyopathy; I11.9 Hypertensive heart disease without heart failure; K52.9 Noninfective gastroenteritis and colitis, unspecified; F32.9 Major depressive disorder, single episode, unspecified; D50.9 Iron deficiency anemia, unspecified; J45.20 Mild intermittent asthma, uncomplicated; J44.9 Chronic obstructive pulmonary disease, unspecified; Z86.718 Personal history of other venous thrombosis and embolism; E11.9 Type 2 diabetes mellitus without complications; F41.8 Other specified anxiety disorders; K21.9 Gastro-esophageal reflux disease without esophagitis; H91.90 Unspecified hearing loss, unspecified ear; Z79.899 Other long term (current) drug therapy
CPT/HCPCS: 47563; 88304; 80053; 85025; J2250; J0330; J1100; J2710; J0690; J2405; J2001; J3010; J2704; J1644

== ENCOUNTER → 2023-02-25 | Outpatient (CLI) | payer OTHER ==
[2023-02-25 23:40] LABS: C Reactive Protein <0.30 mg/dL (0.00-0.80); Rheumatoid Factor, Qnt <15 IU/mL (0-15); Uric Acid 7.6 mg/dL (3.7-8.7)
== END | disposition home or self-care (01) ==
LOC: LABWHC1 10:28
PROVIDERS: ATTEND Family Medicine
DX: M79.641 Pain in right hand (principal); M79.642 Pain in left hand; M25.511 Pain in right shoulder; M25.551 Pain in right hip; M25.50 Pain in unspecified joint; R10.31 Right lower quadrant pain
CPT/HCPCS: 36415; 84550; 85652; 86038; 86140; 86431

== ENCOUNTER → 2023-02-25 | Outpatient (CLI) | payer OTHER ==
--- NOTE | 2023-02-25 12:10 | XR ---
EXAMINATION TYPE: XR Hip Complete RT DATE OF EXAM: 02/25/2023 11:53 AM CLINICAL INDICATION:Male, 57 years old with history of M25.551 RIGHT HIP PAIN; [facility] COMPARISON: None. TECHNIQUE: XR Hip Complete RT; hip was examined in the frontal and lateral projections and a AP pelvi s. FINDINGS: No evidence for acute process, joint dislocation or significant soft tissue swelling. Osteo phyte formation of the superior acetabulum of the hip. IMPRESSION: 1. No evidence for acute process. 2. Mild hip osteoarthrosis.
--- NOTE | 2023-02-25 12:13 | XR ---
EXAMINATION TYPE: XR shoulder complete RT DATE OF EXAM: 02/25/2023 11:54 AM CLINICAL INDICATION:Male, 57 years old with history of M79.641 RIGHT HAND PAIN; COMPARISON: None TECHNIQUE: XR shoulder complete RT; shoulder was examined in AP, internally rotated and scapular Y p rojections. FINDINGS: No evidence of acute osseous pathology, joint dislocation, or soft tissue swelling. The remaining por tions of the visualized chest are unremarkable. IMPRESSION: No acute osseous pathology.
== END | disposition home or self-care (01) ==
LOC: RADXRMAIN 11:25
PROVIDERS: ATTEND Family Medicine
DX: M16.11 Unilateral primary osteoarthritis, right hip (principal); M79.641 Pain in right hand
CPT/HCPCS: 73502